=== PATIENT | female | born 1950 | race Caucasian/White ===

== ENCOUNTER → 2016-05-09 | Outpatient (CLI) | payer OTHER, BC ==
[2016-05-09 10:08] LABS: CHOLESTEROL/HDL RATIO 2.8; THYROID STIMULATING HORMONE 2.15 uIu/ml (0.300-4.500)
[2016-05-09 12:57] LABS: LYME DISEASE AB IGG NEG (NEG); LYME DISEASE AB IGM NEG (NEG)
== END | disposition home or self-care (01) ==
LOC: C.LAB1850 07:20
PROVIDERS: ATTEND Internal Medicine
DX: M81.0 Age-related osteoporosis without current pathological fracture (principal); F41.9 Anxiety disorder, unspecified; Z13.1 Encounter for screening for diabetes mellitus; M60.9 Myositis, unspecified; M79.1 Myalgia

== ENCOUNTER → 2016-09-06 | Outpatient (CLI) | payer OTHER, BC ==
[2016-09-06 17:42] LABS: LYME DISEASE AB IGM NEG (NEG)
[2016-09-06 17:43] LABS: LYME DISEASE AB IGG NEG (NEG)
== END | disposition home or self-care (01) ==
LOC: C.LAB1850 15:41
PROVIDERS: ATTEND Physician Assistant
DX: T14.8 Other injury of unspecified body region (principal); W57.XXXA Bitten or stung by nonvenomous insect and other nonvenomous arthropods, initial encounter

== ENCOUNTER → 2016-10-04 | Outpatient (CLI) | payer OTHER, BC ==
[2016-10-04 17:26] LABS: BASO % 0.7 %; BASO ABS # 0.05 K/uL (0-0.2); COMPLETE YES; EOS % 3.3 %; IG% 0.1 %; LYMPH % 22.3 %; LYMPH ABS # 1.64 K/uL (1.2-3.4); MEAN CELL VOLUME 95.2 fL (80-100); MEAN CORPUSCULAR HEMOGLOBIN 31.9 pg (25-34); MEAN CORPUSCULAR HGB CONC 33.5 g/dl (32-36); MEAN PLATELET VOLUME 8.8 fL (7.4-10.4); MONO % 9.7 %; NEUT % 63.9 %; PLATELET COUNT 348 K/uL (130-400); WHITE BLOOD COUNT 7.35 K/uL (4.8-10.8)
[2016-10-04 18:14] LABS: LYME DISEASE AB IGM NEG (NEG)
[2016-10-04 18:17] LABS: LYME DISEASE AB IGG NEG (NEG)
== END | disposition home or self-care (01) ==
LOC: C.LAB1850 16:10
PROVIDERS: ATTEND Internal Medicine
DX: R53.83 Other fatigue (principal)

== ENCOUNTER → 2016-10-29 | Outpatient (CLI) | payer OTHER, BC | END | disposition home or self-care (01) | LOC: C.MAMM 09:46 | PROVIDERS: ATTEND Internal Medicine | DX: M81.0 Age-related osteoporosis without current pathological fracture (principal); M85.851 Other specified disorders of bone density and structure, right thigh; M85.852 Other specified disorders of bone density and structure, left thigh; M85.88 Other specified disorders of bone density and structure, other site ==

== ENCOUNTER → 2017-09-08 | Outpatient (CLI) | payer OTHER, MEDICARE | END | disposition home or self-care (01) | LOC: C.LAB1850 09:22 | PROVIDERS: ATTEND Internal Medicine | DX: T14.8XXA Other injury of unspecified body region, initial encounter (principal); W57.XXXA Bitten or stung by nonvenomous insect and other nonvenomous arthropods, initial encounter ==

== ENCOUNTER → 2017-09-08 | Outpatient (CLI) | payer OTHER, MEDICARE ==
--- NOTE | 2017-09-08 14:33 | MAMMOGRAPHY REPORT ---
BILATERAL DIGITAL SCREENING MAMMOGRAM TOMOSYNTHESIS WITH CAD: 09/08/2017 CLINICAL HISTORY: Routine screening. TECHNIQUE: Breast tomosynthesis in addition to standard 2D mammography was performed. Current study was also evaluated with a Computer Aided Detection (CAD) system. COMPARISON: Comparison is made to exams dated: 09/05/2016 mammogram, 09/23/2014 mammogram, 09/18/2012 ma mmogram, 05/29/2010 mammogram - [facility], 07/28/2008, and 02/19/2006 mammogram - [facility]. BREAST COMPOSITION: There are scattered areas of fibroglandular density in both breasts. FINDINGS: A 6 cm focal asymmetry in the 3:00 middle one third of the left breast is unchanged dating back to at least 05/29/2010, therefore likely benign. No new suspicious mass, architectural distortio n or cluster of microcalcifications is seen. IMPRESSION: ACR BI-RADS CATEGORY 1: NEGATIVE There is no mammographic evidence of malignancy. A 1 year screening mammogram is recommended. The pa tient will receive written notification of the results. Approximately 10% of breast cancers are not detected with mammography. A negative mammographic report should not delay biopsy if a clinically suggestive mass is present. Abril Betancur M.D. ay/:09/08/2017 09:20:31 Ecdis N Navigation Operator: Caitlyn RIVAS)(Stephan), [facility] letter sent: Normal 1/2 BI-RADS Code: ACR BI-RADS Category 1: Negative
== END | disposition home or self-care (01) ==
LOC: C.MAMM 08:34
PROVIDERS: ATTEND Internal Medicine
DX: Z12.31 Encounter for screening mammogram for malignant neoplasm of breast (principal)

== ENCOUNTER 2017-09-09 02:35 | Emergency (ER) | payer OTHER, MEDICARE ==
[~2017-09-09] VITALS: Ht 167.6 cm; Wt 65.4 kg
[2017-09-09 02:43] VITALS: O2SAT 96
[2017-09-09 02:45] VITALS: TEMP 36.7; Ht 167.6 cm; Wt 65.4 kg
[2017-09-09 03:05] LABS: HEMATOCRIT 39.4 % (37-47); HEMOGLOBIN 13.5 g/dL (12.0-16.0); MEAN CELL VOLUME 93.6 fL (80-100); MEAN CORPUSCULAR HEMOGLOBIN 32.1 pg (25-34); MEAN CORPUSCULAR HGB CONC 34.3 g/dl (32-36); MEAN PLATELET VOLUME 8.6 fL (7.4-10.4); PLATELET COUNT 343 K/uL (130-400); RED CELL DISTRIBUTION WIDTH CV 12.6 % (11.5-14.5); RED CELL DISTRIBUTION WIDTH SD 42.6 fL (36.4-46.3); WHITE BLOOD COUNT 9.47 K/uL (4.8-10.8)
--- NOTE | 2017-09-09 03:18 | EMERGENCY ROOM VISIT NOTE ---
History Report prepared by Leatha: Delmi Marc Under the Supervision of: Dr. Vidhi Artis D.O. First contact with patient: 02:41 Chief Complaint: CARDIAC ASSESSMENT Stated Complaint: HEART RACING History of Present Illness The patient is a 66 year old female who presents to the Emergency Room for a cardiac assessment. The patient states that she noticed it was beating hard for the past few days. She reports that this evening she could hear her heart beating in her ears. She states that it sounded like it was going really fast. She reports that she was nervous because it seemed to be getting worse so decided to come to the ED. She states that she has an appointment this morning with her PCP for it, but wanted to be sure she was okay. She notes that she felt like the cooler air helped slow it down. The patient complains of chills. The patient denies this ever happening before, being under more stress than normal, nausea, vomiting, diarrhea, chest pain, shortness of breath, leg cramping, leg swelling, and weight loss. Source of History: patient Onset: a few days ago Position: other (global) Quality: other (cardiac, pounding, racing) Timing: other (episode) Modifying Factors (Relieving): other (cool air) Associated Symptoms: + chills, No chest pain, No SOB, No nausea, No vomiting , No diarrhea Note: The patient denies leg cramping, leg swelling, and weight loss. Review of Systems See HPI for pertinent positives & negatives. A total of 10 systems reviewed and were otherwise negative. Past Medical & Surgical Medical Problems: (1) Arthritis (2) Osteopenia Family History Patient reports no known family medical history. Social History Smoking Status: Current Every Day Smoker Alcohol Use: occasionally Marital Status: single Housing Status: lives alone Occupation Status: retired Current/Historical Medications No Active Prescriptions or Reported Meds Allergies Uncoded Allergies: PENICILLIN (Allergy, Unknown, RASH, 05/12/15) Physical Exam Vital Signs Date Time Temp Pulse Resp B/P (MAP) Pulse Ox O2 Delivery O2 Flow Rate FiO2 09/09/17 04:05 82 18 152/89 96 Room Air 09/09/17 03:35 87 17 95 09/09/17 03:30 154/86 09/09/17 03:20 86 20 93 09/09/17 03:05 87 18 09/09/17 03:00 98 Room Air 09/09/17 03:00 132/93 09/09/17 02:55 160/97 09/09/17 02:50 97 16 96 09/09/17 02:50 97 14 153/96 96 Room Air 09/09/17 02:47 102 09/09/17 02:45 36.7 102 23 176/100 97 Room Air 09/09/17 02:43 96 Room Air Physical Exam HEENT: Head - normocephalic and atraumatic Pupils are equal, round, and reactive to light. Extraocular eye muscles are intact, and sclera are anicteric. Nose - moist nasal mucosa without discharge. Mouth - moist buccal mucosa. Oropharynx is nonerythematous and there is no tonsillar exudate or edema noted. Neck: Supple; no JVD, nuchal rigidity, cervical lymphadenopathy, or auscultated bruits. Heart: Tachycardic rate and regular rhythm. There is a normal S1 and S2 with no murmurs, clicks, or gallops appreciated. Lungs: Clear to auscultation bilaterally with no wheezes, rales, or rhonchi. Abdomen: Soft, completely nontender, nondistended, with good bowel sounds. There are no palpable pulsatile masses or hepatosplenomegaly. There is no guarding, rigidity, or rebound noted. Extremities: No evidence of cyanosis, clubbing, or edema. There are easily palpable peripheral pulses. Skin: warm and dry with good turgor and no rashes. Medical Decision & Procedures ER Provider Diagnostic Interpretation: Radiology results as stated below per my review and the radiologist's interpretation: CHEST X-RAY: The results were interpreted by me. No cardiomegaly. No pulmonary infiltrate or pleural effusion. Laboratory Results 09/09/17 02:56 09/09/17 02:56 Test 09/09/17 02:47 09/09/17 02:56 Bedside Glucose 103 mg/dl (70-90) Red Blood Count 4.21 M/uL (4.2-5.4) Mean Corpuscular Volume 93.6 fL (80-100) Mean Corpuscular Hemoglobin 32.1 pg (25-34) Mean Corpuscular Hemoglobin Concent 34.3 g/dl (32-36) RDW Standard Deviation 42.6 fL (36.4-46.3) RDW Coefficient of Variation 12.6 % (11.5-14.5) Mean Platelet Volume 8.6 fL (7.4-10.4) Anion Gap 6.0 mmol/L (3-11) Est Creatinine Clear Calc Drug Dose 84.0 ml/min Estimated GFR () 108.5 Estimated GFR (Non- 93.7 BUN/Creatinine Ratio 20.2 (10-20) Calcium Level 8.7 mg/dl (8.5-10.1) Troponin I < 0.015 ng/ml (0-0.045) Thyroid Stimulating Hormone (TSH) 2.630 uIu/ml (0.300-4.500) Laboratory results per my review. ECG Per My Interpretation Indication: palpitations Rate (beats per minute): 98 Rhythm: normal sinus Findings: no acute ischemic change, no ectopy ED Course 0242: Past medical records reviewed. The patient was evaluated in room B10. A complete history and physical exam was performed. A 12-lead EKG was obtained as described above. The patient was observed on the cardiac care unit nurse and pulse oximeter. Labs are drawn as above. The patient had a portable chest x-ray as described above. 0349: Upon reevaluation, the patient was doing much better. Her heart rate was 78 and her blood pressure was 154/86. She did not feel such harsh pounding in her ears. I discussed findings and results with her. She verbalized agreement of the treatment plan. The patient was discharged home. Medical Decision The patient is a 66 year old female who presents to the Emergency Room for a cardiac assessment. Differential diagnoses include cardiac dysrhythmia, anxiety, hypertension. LABS: Negative Troponin TSH 2.6 Glucose 104 Normal Renal Function Stable H&H No Leukocytosis This is a 66-year-old female patient who is felt her heart pounding over the past couple of hours. She noted that the rate seemed to speed up. She has no history of cardiac issues or hypertension. Upon arrival in the emergency department, the patient was tachycardic but had no acute EKG changes. With some time and relaxation, the patient's heart rate and blood pressure came down nicely on their own. In fact, the patient was able to sleep. The patient has an appointment scheduled for 8:40 AM this morning with her PCP. I asked her to contact the office and reschedule for later in the afternoon so that she could have her blood pressure rechecked. She will need to keep a log of her blood pressure over the next 5-7 days. She was told return to the emergency department if she had any worsening symptoms such as chest pain or shortness of breath. Medication Reconcilliation Current Medication List: was personally reviewed by me Blood Pressure Screening Patient's blood pressure: Elevated blood pressure Blood pressure disposition: Referred to PCP Impression Primary Impression: Tachycardia Additional Impression: Hypertension Scribe Attestation The scribe's documentation has been prepared under my direction and personally reviewed by me in its entirety. I confirm that the note above accurately reflects all work, treatment, procedures, and medical decision making performed by me. Departure Information Dispostion Home / Self-Care Prescriptions No Active Prescriptions or Reported Meds Referrals RV. Espinosa MD (PCP) Forms IMPORTANT VISIT INFORMATION Patient Instructions My [facility] Additional Instructions Limit salt and caffeine intake. Keep a log of your BP over next 5-7 days Follow up with PCP if heart pounding continues Problem Qualifiers Additional Impression: Hypertension Hypertension type: unspecified Qualified Codes: I10 - Essential (primary) hypertension
[2017-09-09 03:23] LABS: BLOOD UREA NITROGEN 12 mg/dl (7-18); CALCIUM 8.7 mg/dl (8.5-10.1); CARBON DIOXIDE 25 mmol/L (21-32); GLUCOSE 104 mg/dl (70-99); SODIUM 140 mmol/L (136-145)
[2017-09-09 04:05] VITALS: BP 152/89; PULSE 82; O2SAT 96
--- NOTE | 2017-09-09 09:32 | DIAGNOSTIC IMAGING REPORT ---
CHEST ONE VIEW PORTABLE HISTORY: tachycardia COMPARISON: Chest 01/24/2014. FINDINGS: The lungs are clear. Cardiac silhouette is normal in size. No pleural effusions. No pneumothorax. IMPRESSION: No acute process. Electronically signed by: Petar Knight M.D. 09/09/2017 9:31 AM Dictated Date/Time: 09/09/2017 9:29 AM
== END 2017-09-09 04:09 | disposition home or self-care (01) ==
LOC: C.EDB 02:37
DX: R00.0 Tachycardia, unspecified (principal); I10 Essential (primary) hypertension; F17.210 Nicotine dependence, cigarettes, uncomplicated; Z88.0 Allergy status to penicillin

== ENCOUNTER → 2017-11-27 | Outpatient (CLI) | payer OTHER, MEDICARE ==
[2017-11-27 10:12] LABS: BLOOD UREA NITROGEN 12 mg/dl (7-18); CALCIUM 8.9 mg/dl (8.5-10.1); CARBON DIOXIDE 25 mmol/L (21-32); CHOLESTEROL 163 mg/dl (0-200); CREATININE 0.59 mg/dl (0.60-1.20); GLUCOSE 76 mg/dl (70-99); LDL CHOLESTEROL CALCULATED 94 mg/dl; POTASSIUM 4.1 mmol/L (3.5-5.1); SODIUM 137 mmol/L (136-145)
== END | disposition home or self-care (01) ==
LOC: C.LAB1850 07:50
PROVIDERS: ATTEND Internal Medicine
DX: Z13.220 Encounter for screening for lipoid disorders (principal); R03.0 Elevated blood-pressure reading, without diagnosis of hypertension

== ENCOUNTER 2020-09-26 10:02 | Inpatient (IN) ==
--- NOTE | 2020-09-26 10:36 | Communication Note ---
Date of Service: September 26, 2020 This patient was seen in concert with Dr. Shannon and we discussed and agreed upon the history, physical, assessment, and plan. See attending's note for det ails. Resident Activity Tracking Resident Involvement: Resident Care Provided Care Provided: [facility]
--- NOTE | 2020-09-26 11:43 | XRay Report ---
XR hip RT 2V w pelvis CLINICAL HISTORY: Fall. Right hip pain. COMPARISON STUDY: None. FINDINGS: Slightly impacted right femoral neck fracture. No dislocation. The visualized pelvic bones and left hip are intact. IMPRESSION: Slightly impacted right femoral neck fracture. ACT 112: Negative or not required by law. Electronically signed by: Petar Knight M.D. 09/26/2020 11:42 AM
--- NOTE | 2020-09-26 12:06 | Emergency Department Note ---
History of Present Illness General Chief complaint: Fall Time Seen by Provider: 09/26/20 10:17 Source: patient Mode of arrival: EMS Limitations: no limitations History of Present Illness Provider complaint: Right hip pain Maximum Pain Intensity: 1 This is a 69-year-old female who presents to the ED with a chief complaint of a fall. The patient states that around 8:45 AM her dog tugged on her causing her to fall down onto her right side. She has had right hip pain since that time. 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 She tried getting her house and her pain increased and she called EMS and was brought here for evaluation. She reports increased pain with movement of the right hip. Did not strike her head. No other complaints of injury. Home Medications Medication Instructions Recorded Confirmed Type amlodipine 5 mg PO QAM 09/26/20 09/26/20 History calcium phosphate-vitamin D3 2 tab PO QAM 09/26/20 09/26/20 History [Caltrate Gummy Bites] multivit with min-folic acid 2 tab PO QAM 09/26/20 09/26/20 History [Multivitamin Gummies] Allergies Allergy/AdvReac Type Severity Reaction Status Date / Time Penicillins Allergy Verified 09/26/20 11:57 Past Med/Surg History Medical History Anxiety Bilateral sensorineural hearing loss Bilateral tinnitus Bronchitis Conductive hearing loss of right ear with unrestricted hearing of left ear Fear of flying History of tachycardia Nicotine dependence Osteoporosis Pulsatile tinnitus, left ear Skin cancer Vitamin D deficiency Surgical History H/O exploratory laparotomy H/O shoulder surgery Family History Father Alzheimer disease Mother Dementia Osteoporosis Brother Suicide Sister Osteoporosis Ankylosing spondylitis Denies family history of Colon cancer Ovarian cancer Prostate cancer Myocardial infarction Breast cancer Social History Smoking Status: Current every day smoker Hx Alcohol Use: No (2 beers a night ) Hx Substance Use: No Preferred Language: Sammarinese Communication Ability: Effective Visual Impairment: No Limitations Hearing Ability: Normal marital status: Current Living Situation: Spouse current occupational status: retired current occupation: homemaker Feels Safe at Home: Yes Dental Care, Regularly: Yes Physical Activity Frequency: Other Physical Activity Frequency Comment: Frequesnt exercise Seatbelt Use: always Sunscreen Use: No Review of Systems A total of 10 systems reviewed and were otherwise negative Physical Exam Vital Signs Vital Signs - 24 hr 09/26/20 10:13 09/26/20 12:03 Temperature 36.7 C Temperature Source Temporal Artery Scan Pulse Rate 97 H 102 H Pulse Rate from SpO2 Sensor 97 H Respiratory Rate 18 18 Blood Pressure 163/80 H 160/83 H Blood Pressure Mean 107 108 Pulse Oximetry 98 96 Oxygen Delivery Method Room Air Sepsis Recent Fever Within 48 Hours No Sepsis New/Unexplained Change in Mental Status N/A Sepsis Action Taken by Nursing No Action Required CONSTITUTIONAL/VITAL SIGNS: Reviewed / noted above. GENERAL: Non-toxic in appearance. INTEGUMENTARY: Warm, dry, and [place]. HEAD: Normocephalic. EYES: without scleral icterus or trauma. ENT/OROPHARYNX: clear and moist. LYMPHADENOPATHY/NECK: Is supple without lymphadenopathy or meningismus. RESPIRATORY: Lungs clear and equal. CARDIOVASCULAR: Regular rate and rhythm. GI/ABDOMEN: Soft and nontender. No organomegaly or pulsatile mass. No rebound or guarding. Normal bowel sounds. EXTREMITIES: Warm and well perfused. Right hip: No significant shortening or rotation. There is pain with movement. BACK: No CVA tenderness. NEUROLOGICAL: Intact without focal deficits. PSYCHIATRIC: normal affect. MUSCULOSKELETAL: Normally developed with good muscle tone. TRIAGE NURSING DOCUMENTATION REVIEWED. Medical Decision Making Differential Diagnosis Differential includes close head injury, intracranial bleed, facial trauma, cervical spine trauma, chest and thoracic trauma, abdominal and intra-abdominal trauma, spine neurologic trauma, extremity trauma. Medical Records Attestation: I reviewed the patient's medical records. Home Medications Current Medication List: was personally reviewed by me Laboratory Data Attestation: I reviewed the patient's lab results. Result diagrams: 09/26/20 12:08 09/26/20 12:08 Lab Results 09/26/20 09/26/20 09/26/20 Range/Units 12:08 12:08 12:08 WBC 18.23 H (4.8-10.8) K/uL RBC 4.16 L (4.2-5.4) M/uL Hgb 13.4 (12.0-16.0) g/dL Hct 39.0 (37-47) % MCV 93.8 (80-100) fL MCH 32.2 (25-34) pg MCHC 34.4 (32-36) g/dL RDW Std Deviation 42.9 (36.4-46.3) fL RDW Coeff of Maria De Jesus 12.5 (11.5-14.5) % Plt Count 351 (130-400) K/uL MPV 8.7 (7.4-10.4) fL Immature Gran % (Auto) 0.3 % Neut % (Auto) 89.7 % Lymph % (Auto) 5.4 % [place] % (Auto) 4.2 % Eos % (Auto) 0.2 % Baso % (Auto) 0.2 % Neut # (Auto) 16.35 H (1.4-6.5) K/uL Lymph # (Auto) 0.99 L (1.2-3.4) K/uL [place] # (Auto) 0.76 H (0.11-0.59) K/uL Eos # (Auto) 0.04 (0-0.5) K/uL Baso # (Auto) 0.03 (0-0.2) K/uL Immature Gran # (Auto) 0.06 H (0.00-0.02) K/uL PT 10.1 (9.0-12.0) Seconds INR 1.0 (0.9-1.1) APTT 25.5 (21.0-31.0) Seconds PTT Ratio 1.0 Sodium (136-145) mmol/L Potassium (3.5-5.1) mmol/L Chloride (98-107) mmol/L Carbon Dioxide (21-32) mmol/L Anion Gap (3-11) BUN (7-18) mg/dl Creatinine (0.6-1.2) mg/dl Est Cr Clr Drug Dosing ml/min Est GFR ( Amer) ml/min Est GFR (Non-Af Amer) ml/min BUN/Creatinine Ratio (10-20) Glucose (70-99) mg/dl Calcium (8.5-10.1) mg/dl Total Bilirubin (0.2-1) mg/dl AST (15-37) U/L ALT (12-78) U/L Alkaline Phosphatase (45-117) U/L Total Protein (6.4-8.2) gm/dl Albumin (3.4-5.0) gm/dl Globulin (2.5-4.0) gm/dl Albumin/Globulin Ratio (0.9-2) Urine Color Urine Appearance (Clear) Urine pH (4.5-7.5) Ur Specific Boomer (1.000-1.030) Urine Protein (Negative) Urine Glucose (UA) (Negative) Urine Ketones (Negative) Urine Blood (Negative) Urine Nitrite (Negative) Urine Bilirubin (Negative) Urine Urobilinogen (Negative) Ur Leukocyte Esterase (Negative) Urine WBC (Auto) (0-5) /hpf Urine RBC (Auto) (0-4) /hpf U Hyaline Cast (Auto) (0-5) /lpf U Epithel Cells (Auto) (0-5) /lpf Urine Bacteria (Auto) (Negative) COVID-19 Eval Order SARS-CoV-2 (PCR) (Negative) Blood Type O Positive Antibody Screen NEGATIVE 09/26/20 09/26/20 09/26/20 Range/Units 12:08 12:17 12:17 WBC (4.8-10.8) K/uL RBC (4.2-5.4) M/uL Hgb (12.0-16.0) g/dL Hct (37-47) % MCV (80-100) fL MCH (25-34) pg MCHC (32-36) g/dL RDW Std Deviation (36.4-46.3) fL RDW Coeff of Maria De Jesus (11.5-14.5) % Plt Count (130-400) K/uL MPV (7.4-10.4) fL Immature Gran % (Auto) % Neut % (Auto) % Lymph % (Auto) % [place] % (Auto) % Eos % (Auto) % Baso % (Auto) % Neut # (Auto) (1.4-6.5) K/uL Lymph # (Auto) (1.2-3.4) K/uL [place] # (Auto) (0.11-0.59) K/uL Eos # (Auto) (0-0.5) K/uL Baso # (Auto) (0-0.2) K/uL Immature Gran # (Auto) (0.00-0.02) K/uL PT (9.0-12.0) Seconds INR (0.9-1.1) APTT (21.0-31.0) Seconds PTT Ratio Sodium 139 (136-145) mmol/L Potassium 3.6 (3.5-5.1) mmol/L Chloride 108 H (98-107) mmol/L Carbon Dioxide 22 (21-32) mmol/L Anion Gap 9.0 (3-11) BUN 14 (7-18) mg/dl Creatinine 0.48 L (0.6-1.2) mg/dl Est Cr Clr Drug Dosing 100.6 ml/min Est GFR ( Amer) 114.4 ml/min Est GFR (Non-Af Amer) 98.7 ml/min BUN/Creatinine Ratio 29.6 H (10-20) Glucose 101 H (70-99) mg/dl Calcium 9.1 (8.5-10.1) mg/dl Total Bilirubin 0.3 (0.2-1) mg/dl AST 20 (15-37) U/L ALT 27 (12-78) U/L Alkaline Phosphatase 84 (45-117) U/L Total Protein 7.5 (6.4-8.2) gm/dl Albumin 4.2 (3.4-5.0) gm/dl Globulin 3.3 (2.5-4.0) gm/dl Albumin/Globulin Ratio 1.3 (0.9-2) Urine Color Urine Appearance (Clear) Urine pH (4.5-7.5) Ur Specific Boomer (1.000-1.030) Urine Protein (Negative) Urine Glucose (UA) (Negative) Urine Ketones (Negative) Urine Blood (Negative) Urine Nitrite (Negative) Urine Bilirubin (Negative) Urine Urobilinogen (Negative) Ur Leukocyte Esterase (Negative) Urine WBC (Auto) (0-5) /hpf Urine RBC (Auto) (0-4) /hpf U Hyaline Cast (Auto) (0-5) /lpf U Epithel Cells (Auto) (0-5) /lpf Urine Bacteria (Auto) (Negative) COVID-19 Eval Order Covid19 at [facility] SARS-CoV-2 (PCR) NEGATIVE (Negative) Blood Type Antibody Screen 09/26/20 Range/Units 12:35 WBC (4.8-10.8) K/uL RBC (4.2-5.4) M/uL Hgb (12.0-16.0) g/dL Hct (37-47) % MCV (80-100) fL MCH (25-34) pg MCHC (32-36) g/dL RDW Std Deviation (36.4-46.3) fL RDW Coeff of Maria De Jesus (11.5-14.5) % Plt Count (130-400) K/uL MPV (7.4-10.4) fL Immature Gran % (Auto) % Neut % (Auto) % Lymph % (Auto) % [place] % (Auto) % Eos % (Auto) % Baso % (Auto) % Neut # (Auto) (1.4-6.5) K/uL Lymph # (Auto) (1.2-3.4) K/uL [place] # (Auto) (0.11-0.59) K/uL Eos # (Auto) (0-0.5) K/uL Baso # (Auto) (0-0.2) K/uL Immature Gran # (Auto) (0.00-0.02) K/uL PT (9.0-12.0) Seconds INR (0.9-1.1) APTT (21.0-31.0) Seconds PTT Ratio Sodium (136-145) mmol/L Potassium (3.5-5.1) mmol/L Chloride (98-107) mmol/L Carbon Dioxide (21-32) mmol/L Anion Gap (3-11) BUN (7-18) mg/dl Creatinine (0.6-1.2) mg/dl Est Cr Clr Drug Dosing ml/min Est GFR ( Amer) ml/min Est GFR (Non-Af Amer) ml/min BUN/Creatinine Ratio (10-20) Glucose (70-99) mg/dl Calcium (8.5-10.1) mg/dl Total Bilirubin (0.2-1) mg/dl AST (15-37) U/L ALT (12-78) U/L Alkaline Phosphatase (45-117) U/L Total Protein (6.4-8.2) gm/dl Albumin (3.4-5.0) gm/dl Globulin (2.5-4.0) gm/dl Albumin/Globulin Ratio (0.9-2) Urine Color Yellow Urine Appearance Clear (Clear) Urine pH 7.5 (4.5-7.5) Ur Specific Boomer 1.011 (1.000-1.030) Urine Protein Negative (Negative) Urine Glucose (UA) Negative (Negative) Urine Ketones Trace H (Negative) Urine Blood Negative (Negative) Urine Nitrite Negative (Negative) Urine Bilirubin Negative (Negative) Urine Urobilinogen Negative (Negative) Ur Leukocyte Esterase Trace H (Negative) Urine WBC (Auto) 1-5 (0-5) /hpf Urine RBC (Auto) 0-4 (0-4) /hpf U Hyaline Cast (Auto) 0 (0-5) /lpf U Epithel Cells (Auto) 5-10 H (0-5) /lpf Urine Bacteria (Auto) Negative (Negative) COVID-19 Eval Order SARS-CoV-2 (PCR) (Negative) Blood Type Antibody Screen Imaging Data Attestation: I personally reviewed and interpreted this imaging study as follows: Radiologist's Impression: Hip/Pelvis X-Ray 09/26/20 10:43 XR hip RT 2V w pelvis CLINICAL HISTORY: Fall. Right hip pain. COMPARISON STUDY: None. FINDINGS: Slightly impacted right femoral neck fracture. No dislocation. The visualized pelvic bones and left hip are intact. IMPRESSION: Slightly impacted right femoral neck fracture. ACT 112: Negative or not required by law. Electronically signed by: Petar Knight M.D. 09/26/2020 11:42 AM Chest X-Ray 09/26/20 11:53 XR chest 1V portable CLINICAL HISTORY: Hip fracture. Fall. COMPARISON STUDY: Chest radiograph March 08, 2019. FINDINGS: Lung volumes are normal. There is no pneumothorax or pleural effusion. Densities project over the left lower lung are likely due to overlying soft tissues. Cardiac size is normal. There is no evidence for pneumonia. There is pulmonary vascular congestion without overt pulmonary edema. IMPRESSION: 1. No pneumothorax. 2. Pulmonary vascular congestion without overt edema. 3. Left lower lung densities which are probably artifactual. ACT 112: Negative or not required by law. Electronically signed by: Avila Cantu M.D. 09/26/2020 12:28 PM [facility] Narrative Patient presents with right hip pain after a fall as detailed above. X-ray of the right hip reveals a slightly impacted right femoral neck fracture. White blood cell count is 18 likely related to the patient's trauma. No clinical suspicions for infection. Chemistry panel was unremarkable.I spoke with the hospitalist about the patient. The patient will be admitted for further patient evaluation and care. Impression & Plan Fracture of hip, right, closed Discharge Plan Visit Data Chief Complaint: Fall ED Provider: Juan David Shannon ED Midlevel Provider: Joey Grady Discharge Problem: Fracture of hip, right, closed Patient Disposition: Being Evaluated by Hospitalist Forms Stand Alone Forms: My [facility], Virtual Emergency Department, Important Visit Information Prescriptions Prescriptions: No Action Multivitamin Gummies 200 mcg Tablet,Chewable 2 tab PO QAM RF: 0 calcium phosphate-vitamin D3 [Caltrate Gummy Bites] 250 mg-10 mcg (400 unit) Tablet,Chewable 2 tab PO QAM RF: 0 amlodipine 5 mg tablet 5 mg PO QAM RF: 0 Referrals Referrals: Pradeep Whitten MD [Primary Care Provider] -
[2020-09-26 12:16] LABS: Basophils # (auto) 0.03 K/uL (0-0.2); Basophils % (auto) 0.2 %; Eosinophils # (auto) 0.04 K/uL (0-0.5); Eosinophils % (auto) 0.2 %; Hemoglobin 13.4 g/dL (12.0-16.0); Immature Granulocytes # (auto) 0.06 K/uL (0.00-0.02); Immature Granulocytes % (auto) 0.3 %; Lymphocytes # (auto) 0.99 K/uL (1.2-3.4); Lymphocytes % (auto) 5.4 %; Mean Corpuscular Hemoglobin 32.2 pg (25-34); Mean Corpuscular Hgb Conc 34.4 g/dL (32-36); Mean Corpuscular Volume 93.8 fL (80-100); Mean Platelet Volume 8.7 fL (7.4-10.4); Monocytes # (auto) 0.76 K/uL (0.11-0.59); Monocytes % (auto) 4.2 %; Neutrophils # (auto) 16.35 K/uL (1.4-6.5); Neutrophils % (auto) 89.7 %; Platelet Count 351 K/uL (130-400); RDW Coefficient of Variation 12.5 % (11.5-14.5); RDW Standard Deviation 42.9 fL (36.4-46.3); Red Blood Count 4.16 M/uL (4.2-5.4); White Blood Count 18.23 K/uL (4.8-10.8)
[2020-09-26 12:25] LABS: Partial Thromboplastin Time 25.5 Seconds (21.0-31.0); Prothrombin Time 10.1 Seconds (9.0-12.0)
--- NOTE | 2020-09-26 12:29 | XRay Report ---
XR chest 1V portable CLINICAL HISTORY: Hip fracture. Fall. COMPARISON STUDY: Chest radiograph March 08, 2019. FINDINGS: Lung volumes are normal. There is no pneumothorax or pleural effusion. Densities project ov er the left lower lung are likely due to overlying soft tissues. Cardiac size is normal. There is no evidence for pneumonia. There is pulmonary vascular congestion without overt pulmonary edema. IMPRESSION: 1. No pneumothorax. 2. Pulmonary vascular congestion without overt edema. 3. Left lower lung densities which are probably artifactual. ACT 112: Negative or not required by law. Electronically signed by: Avila Cantu M.D. 09/26/2020 12:28 PM
--- NOTE | 2020-09-26 12:32 | History & Physical Report ---
Date of Service September 26, 2020 Assessment & Plan (1) Closed right hip fracture: Right femoral neck fracture from a fall Will admit to a nonmonitored bed Low-dose Dilaudid for analgesia We will consult orthopedics for possible surgical correction DVT prophylaxis with heparin, can stop perioperatively No medical objection to proceeding with any required orthopedic procedure (2) Hypertension: Patient currently on amlodipine 5 mg daily Hypertensive, likely secondary to pain. We will continue to monitor on current medications. History of Present Illness Chief Complaint: Fall Primary Care Provider: Pradeep Whitten MD This is a 69-year-old female with past medical history hypertension that presents today status post fall. Patient is pleasant good historian. Patient raises [facility], will bring 1 to a groomer today. The dog became nervous and pulled the leash. Patient fell, landing on her right side. She did not pass out or strike her head. She was able to get up on her own power and drove home. She was started to have right hip pain which prompted her to come to the emergency room for further evaluation. In the ER, plain x-ray showed an impacted right femoral neck fracture. Patient is now being admitted for further treatment of this. Patient's main complaint is right hip pain which is consistent with her injury. There is no back or distal extremity pain. She also denies any systemic symptoms such as chest pain, shortness of breath, dyspnea, abdominal pain, or other issues at this time. Allergies Allergy/AdvReac Type Severity Reaction Status Date / Time Penicillins Allergy Verified 09/26/20 11:57 Home Medications Medication Instructions Recorded Confirmed Type amlodipine 5 mg PO QAM 09/26/20 09/26/20 History calcium phosphate-vitamin D3 2 tab PO QAM 09/26/20 09/26/20 History [Caltrate Gummy Bites] multivit with min-folic acid 2 tab PO QAM 09/26/20 09/26/20 History [Multivitamin Gummies] Past Med/Surg History Medical History Anxiety Bilateral sensorineural hearing loss Bilateral tinnitus Bronchitis Conductive hearing loss of right ear with unrestricted hearing of left ear Fear of flying History of tachycardia Nicotine dependence Osteoporosis Pulsatile tinnitus, left ear Skin cancer Vitamin D deficiency Surgical History H/O exploratory laparotomy H/O shoulder surgery Family History Father Alzheimer disease Mother Dementia Osteoporosis Brother Suicide Sister Osteoporosis Ankylosing spondylitis Denies family history of Colon cancer Ovarian cancer Prostate cancer Myocardial infarction Breast cancer Social History Smoking Status: Current every day smoker Hx Alcohol Use: No (2 beers a night ) Hx Substance Use: No Preferred Language: Japanese Communication Ability: Effective Visual Impairment: No Limitations Hearing Ability: Normal marital status: Current Living Situation: Spouse current occupational status: retired current occupation: homemaker Feels Safe at Home: Yes Dental Care, Regularly: Yes Physical Activity Frequency: Other Physical Activity Frequency Comment: Frequesnt exercise Seatbelt Use: always Sunscreen Use: No Review of Systems Constitutional: no fever, no chills, no body aches, no fatigue, no weakness and no anorexia Ear, Nose, Mouth, Throat: no ear pain, no ear discharge and no ear trauma Respiratory: no cough, no chest congestion, no dyspnea, no dyspnea on exertion, no pain on inspiration, no pain with cough, no stopping breathing during sleep, no sputum production and no problem reported Cardiovascular: no chest pain, no chest pain at rest, no radiating jaw, neck or arm pain, no dyspnea, no dyspnea on exertion, no orthopnea, no palpitations and no lightheadedness Gastrointestinal: no abdominal pain, no nausea, no vomiting, no constipation and no diarrhea/loose stools Genitourinary: no dysuria, no difficulty urinating, no urinary hesitancy and no urinary urgency Musculoskeletal: + joint pain and + problem reported; no back pain and no loss of height Integumentary: no rash and no lesions Neurologic: + falls Psychiatric: as per Subjective / HPI Physical Exam Constitutional: + thin and cooperative; no acute distress ENMT: external ear and nose normal, oropharynx normal Neck: trachea midline, no thyromegaly Respiratory: normal respiratory effort, lungs clear to auscultation Cardiovascular: RRR, no murmur, no edema Vessels: no JVD and no carotid bruit Extremities: no edema Gastrointestinal (Abdomen): normal bowel sounds, soft, nontender, no hepatosplenomegaly Musculoskeletal: no cyanosis or clubbing, extremities motor strength 5/5 Right extremity warm, good DP/PT pulses. Slightly shortened and externally rotated Neurologic: PERRL, EOMI, accommodation nl, no face palsy, no dysarthria Results & Data Results & Data ([facility]) Vital Signs (Past 12 Hours) Vital Signs Temp Pulse Resp BP Pulse Ox 09/26/20 12:03 102 H 18 160/83 H 96 09/26/20 10:13 36.7 C 97 H 18 163/80 H 98 Diagnostic Findings XR hip RT 2V w pelvis CLINICAL HISTORY: Fall. Right hip pain. COMPARISON STUDY: None. FINDINGS: Slightly impacted right femoral neck fracture. No dislocation. The visualized pelvic bones and left hip are intact. IMPRESSION: Slightly impacted right femoral neck fracture. PG Care Time/CCT Total # of Minutes Spent Total Time Spent with Patient: Total time spent is greater than 50% in coordination of care (as documented) at patient's floor/unit and/or counseling patient: Coding Level of Care Code 77554 Initial Inpt Care Lvl 3 Diagnoses Closed right hip fracture S72.001A Hypertension I10
[2020-09-26 12:49] LABS: Appearance Urine Clear (Clear); Bacteria Urine Automated Negative (Negative); Bilirubin Urine Negative (Negative); Blood Urine Negative (Negative); Cast Urine Automated 0 /lpf (0-5); Color Urine Yellow; Glucose Urine UA Negative (Negative); Ketones Urine Trace (Negative); Leukocyte Esterase Urine Trace (Negative); Nitrite Urine Negative (Negative); Protein Urine Negative (Negative); RBC Urine Automated 0-4 /hpf (0-4); Specific Gravity Urine 1.011 (1.000-1.030); Urobilinogen Urine Negative (Negative); pH Urine 7.5 (4.5-7.5)
[2020-09-26 12:50] LABS: Albumin Level 4.2 gm/dl (3.4-5.0); BUN Creatinine Ratio 29.6 (10-20); Calcium 9.1 mg/dl (8.5-10.1); Creatinine Clr Calc Pharmacy 100.6 ml/min; Est GFR (African American) 114.4 ml/min; Est GFR (Non-African American) 98.7 ml/min; Potassium 3.6 mmol/L (3.5-5.1)
[2020-09-26 13:02] LABS: Albumin Globulin Ratio 1.3 (0.9-2); Bilirubin,Total 0.3 mg/dl (0.2-1); Globulin 3.3 gm/dl (2.5-4.0); Total Protein 7.5 gm/dl (6.4-8.2)
[2020-09-26] MEDS ORDERED: ZOLPIDEM TARTRATE 5 MG TAB PO PRN (14:48)
[2020-09-26] MEDS ORDERED: POLYETHYLENE (MIRALAX) 17 GM PACK PO PRN (14:48)
[2020-09-26] MEDS ORDERED: HYDROmorphone INJ 0.5 MG/0.5 ML SYR IV PRN (14:48)
[2020-09-26] MEDS ORDERED: ACETAMINOPHEN 325 MG TAB PO PRN (14:48)
--- NOTE | 2020-09-26 16:25 | Electrocardiogram Report ---
Test Reason : Blood Pressure : / mmHG Vent. Rate : 099 BPM Atrial Rate : 099 BPM P-R Int : 152 ms QRS Dur : 080 ms QT Int : 368 ms P-R-T Axes : 079 029 067 degrees QTc Int : 472 ms Normal sinus rhythm with sinus arrhythmia Normal ECG When compared with ECG of 09-SEP-2017 02:43, No significant change was found Confirmed by Neeraj Lui ([id number]) on 09/26/2020 4:24:54 PM Referred By: REFERRED SELF Confirmed By:Neeraj Lui
[2020-09-26] MEDS: HEPARIN SOD 5,000 UNIT/0.5 ML VIAL SQ SCH ×2 (16:26→21:47)
[2020-09-26] MEDS: SODIUM CHLORIDE 0.9% 1000ML 1,000 ML IV SCH (17:04)
--- NOTE | 2020-09-26 17:29 | Orthopedic Consultation ---
Date of Consultation September 26, 2020 Assessment & Plan (1) Fracture of hip, right, closed: I discussed at length the patient's diagnosis and surgical treatment options which included right hip percutaneous pinning. We will plan for surgery on 09/27/2020, afternoon. N.p.o. after midnight, nonweightbearing right lower extremity, pain control, ice to right hip. Hold anticoagulation. Thank you for the consultation. 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 Patient reports she was able to ambulate with some difficulty and was able to drive home. Patient denies hitting head or loss of consciousness. X-rays obtained at the emergency department demonstrated a valgus impacted right femoral neck fracture. The patient was admitted for further treatment for her right hip fracture. She denies any numbness or tingling to her right lower extremity, denies any associated injuries. Allergies Allergy/AdvReac Type Severity Reaction Status Date / Time Penicillins Allergy Verified 09/26/20 11:57 Home Medications Medication Instructions Recorded Confirmed Type amlodipine 5 mg PO QAM 09/26/20 09/26/20 History calcium phosphate-vitamin D3 2 tab PO QAM 09/26/20 09/26/20 History [Caltrate Gummy Bites] multivit with min-folic acid 2 tab PO QAM 09/26/20 09/26/20 History [Multivitamin Gummies] Patient History Medical History Anxiety Bilateral sensorineural hearing loss Bilateral tinnitus Bronchitis Conductive hearing loss of right ear with unrestricted hearing of left ear Fear of flying History of tachycardia Nicotine dependence Osteoporosis Pulsatile tinnitus, left ear Skin cancer Vitamin D deficiency Surgical History H/O exploratory laparotomy H/O shoulder surgery Family History Father Alzheimer disease Mother Dementia Osteoporosis Brother Suicide Sister Osteoporosis Ankylosing spondylitis Denies family history of Colon cancer Ovarian cancer Prostate cancer Myocardial infarction Breast cancer Social History Smoking Status: Current every day smoker Cigarettes Per Day: 10; Hx Alcohol Use: Yes Alcohol type: beer Hx Substance Use: No Preferred Language: Cook Islander Communication Ability: Effective Visual Impairment: No Limitations Hearing Ability: Normal Funeral Director/Embalmer Required: No Beliefs That Will Affect Care: None marital status: Current Living Situation: Alone current occupational status: retired current occupation: homemaker Other Information That Helps Us Care for You: No Feels Safe at Home: Yes Safety Concerns: Feels Safe At This Time Dental Care, Regularly: Yes Physical Activity Frequency: Other Physical Activity Frequency Comment: Frequesnt exercise Seatbelt Use: always Sunscreen Use: No Assistive Devices: None Review of Systems Review of Systems: All systems reviewed & are unremarkable except as noted in HPI & below Constitutional: as per Subjective / HPI Physical Exam Physical Exam: RLE NVSI +EHL/FHL/TA/GS SILT grossly, +2 DP pulse, compartments soft NT. Constitutional: WD/WN, vitals as above Results & Data ([place]) Vital Signs (Past 12 Hours) Vital Signs Temp Pulse Pulse Resp BP BP Pulse Ox 09/26/20 14:46 36.7 C 102 H 18 150/95 H 99 09/26/20 14:14 101 H 18 150/91 H 97 09/26/20 12:03 102 H 18 160/83 H 96 09/26/20 10:13 36.7 C 97 H 18 163/80 H 98 Diagnostic Findings XR hip RT 2V w pelvis CLINICAL HISTORY: Fall. Right hip pain. COMPARISON STUDY: None. FINDINGS: Slightly impacted right femoral neck fracture. No dislocation. The visualized pelvic bones and left hip are intact. IMPRESSION: Slightly impacted right femoral neck fracture. ACT 112: Negative or not required by law. (1) Fracture of hip, right, closed Encounter type: initial encounter Qualified Code(s): S72.001A - Fracture of unspecified part of neck of right femur, initial encounter for closed fracture
[2020-09-26] MEDS: NICOTINE 14 MG/24 HR PATCH TD SCH (18:42)
[2020-09-26] MEDS: HYDROmorphone INJ 0.5 MG/0.5 ML SYR IV PRN (21:41)
[2020-09-27] MEDS: HYDROmorphone INJ 0.5 MG/0.5 ML SYR IV PRN ×7 (00:54→21:55)
[2020-09-27] MEDS: SODIUM CHLORIDE 0.9% 1000ML 1,000 ML IV SCH ×2 (05:30→21:52)
[2020-09-27 05:42] LABS: Basophils # (auto) 0.03 K/uL (0-0.2); Basophils % (auto) 0.4 %; Eosinophils # (auto) 0.05 K/uL (0-0.5); Eosinophils % (auto) 0.6 %; Hematocrit (blood only) 35.2 % (37-47); Hemoglobin 12.1 g/dL (12.0-16.0); Immature Granulocytes # (auto) 0.01 K/uL (0.00-0.02); Immature Granulocytes % (auto) 0.1 %; Lymphocytes # (auto) 1.17 K/uL (1.2-3.4); Lymphocytes % (auto) 14.2 %; Mean Corpuscular Hemoglobin 32.9 pg (25-34); Mean Corpuscular Hgb Conc 34.4 g/dL (32-36); Mean Corpuscular Volume 95.7 fL (80-100); Mean Platelet Volume 8.9 fL (7.4-10.4); Monocytes # (auto) 0.74 K/uL (0.11-0.59); Neutrophils # (auto) 6.25 K/uL (1.4-6.5); Neutrophils % (auto) 75.7 %; Platelet Count 321 K/uL (130-400); RDW Coefficient of Variation 12.4 % (11.5-14.5); RDW Standard Deviation 43.4 fL (36.4-46.3); Red Blood Count 3.68 M/uL (4.2-5.4); White Blood Count 8.25 K/uL (4.8-10.8)
[2020-09-27] MEDS: HEPARIN SOD 5,000 UNIT/0.5 ML VIAL SQ SCH ×2 (05:48→13:19)
[2020-09-27 06:13] LABS: BUN Creatinine Ratio 25.2 (10-20); Calcium 8.3 mg/dl (8.5-10.1); Creatinine Clr Calc Pharmacy 109.8 ml/min; Est GFR (African American) 117.7 ml/min; Est GFR (Non-African American) 101.6 ml/min; Potassium 3.6 mmol/L (3.5-5.1)
[2020-09-27] MEDS: NICOTINE 14 MG/24 HR PATCH TD SCH (07:48)
[2020-09-27] MEDS: amLODIPine BESYLATE 5 MG TAB PO SCH (08:31)
[2020-09-27] MEDS: CALCIUM 600MG + VIT D 400 IU TAB PO SCH (08:31)
[2020-09-27] MEDS: MULTIVITAMIN TAB PO SCH (08:32)
--- NOTE | 2020-09-27 10:43 | Anesthesiology Consultation ---
Date of Service September 27, 2020 Assessment & Plan (1) Encounter for pre-operative examination: Chart Review Chart Review: Acceptable Risk for Surgery and Patient NOT seen in Pre Admission Testing Consults Requested none History Surgery Operation Date: 09/27/20 07:00 Proposed Procedures p Right Hip Open Reduction Internal Fixation 7.3 Cannulated Screws - Arie Shannon MD Height/Weight Height: 5 ft 6 in Weight: 65 kg Allergies Allergy/AdvReac Type Severity Reaction Status Date / Time Penicillins Allergy Verified 09/26/20 11:57 Medications Home Medications Medication Instructions Recorded Confirmed Last Taken amlodipine 5 mg PO QAM 09/26/20 09/26/20 09/26/20 calcium phosphate-vitamin D3 2 tab PO QAM 09/26/20 09/26/20 09/26/20 [Caltrate Gummy Bites] multivit with min-folic acid 2 tab PO QAM 09/26/20 09/26/20 09/26/20 [Multivitamin Gummies] Active Medications Generic Name Dose Route Start Last Admin Trade Name Freq PRN Reason Stop Dose Admin Amlodipine Besylate 5 mg 09/27/20 09:00 09/27/20 08:31 Amlodipine Besylate 5 Mg Tab PO 10/27/20 08:59 5 mg QAM LES Administration Heparin Sodium (Porcine) 5,000 units 09/26/20 14:48 09/27/20 05:48 Heparin Sod 5,000 Unit/0.5 Ml Vial SQ 10/26/20 14:47 Not Given Q8 LES Hydromorphone HCl 0.25 mg 09/26/20 21:07 09/27/20 00:54 Hydromorphone Inj 0.5 Mg/0.5 Ml Syr IV 10/10/20 21:06 0.25 mg Q3H PRN Administration Pain (1,2,3,4,5) & Pre PT Hydromorphone HCl 0.5 mg 09/26/20 21:07 09/27/20 07:44 Hydromorphone Inj 0.5 Mg/0.5 Ml Syr IV 10/10/20 21:06 0.5 mg Q3H PRN Administration Pain (6,7,8,9,10) Sodium Chloride 1,000 mls @ 75 mls/hr 09/26/20 16:45 09/27/20 05:30 Nss 1000ml IV 10/25/21 16:44 75 mls/hr .[id number] LES Administration Miscellaneous 1 ea 09/27/20 08:59 09/27/20 07:47 Remove Nicoderm Patch N/A 10/27/20 08:58 Not Given [id number] LES Multivitamins 1 tab 09/27/20 09:00 09/27/20 08:32 Multivitamin Tab PO 10/27/20 08:59 1 tab QAM LES Administration Multivitamins/Minerals 1 tab 09/27/20 09:00 09/27/20 08:31 Calcium 600mg + Vit D 400 Iu Tab PO 10/27/20 08:59 1 tab QAM LES Administration Nicotine 14 mg 09/26/20 16:52 09/27/20 07:48 Nicotine 14 Mg/24 Hr Patch TD 10/26/20 16:51 Not Given QAM LES NPO Date Last Intake of Fluids: 09/26/20 Time Last Intake of Fluids: 23:59 Date Last Intake of Solids: 09/26/20 Time Last Intake of Solids: 22:00 Last Intake of Solids Comment: crackers and applesauce Past Medical History Medical History Anxiety Bilateral sensorineural hearing loss Bilateral tinnitus Bronchitis Conductive hearing loss of right ear with unrestricted hearing of left ear Fear of flying History of tachycardia Nicotine dependence Osteoporosis Pulsatile tinnitus, left ear Skin cancer Vitamin D deficiency Past Family History Family History Father Alzheimer disease Mother Dementia Osteoporosis Brother Suicide Sister Osteoporosis Ankylosing spondylitis Denies family history of Colon cancer Ovarian cancer Prostate cancer Myocardial infarction Breast cancer Past Surgical History Surgical History H/O exploratory laparotomy H/O shoulder surgery Social History Smoking Status: Current every day smoker tobacco type: cigarettes Smoking cigarettes per day: 10 Hx Alcohol Use: Yes Alcohol type: beer alcohol intake frequency: 3 or more drinks per day Hx Substance Use: No Physical Exam Vital Signs Last Vital Signs Temp 37.0 C 09/27/20 07:11 Pulse 85 09/27/20 07:11 Resp 18 09/27/20 07:11 BP 137/71 09/27/20 07:11 Pulse Ox 95 09/27/20 07:11 Testing Laboratory Results 09/27/20 05:07 09/27/20 05:07 PT 10.1 Seconds (9.0-12.0) 09/26/20 12:08 INR 1.0 (0.9-1.1) 09/26/20 12:08 APTT 25.5 Seconds (21.0-31.0) 09/26/20 12:08 Urine Color Yellow 09/26/20 12:35 Urine Appearance Clear (Clear) 09/26/20 12:35 Urine pH 7.5 (4.5-7.5) 09/26/20 12:35 Ur Specific [place] 1.011 (1.000-1.030) 09/26/20 12:35 Urine Protein Negative (Negative) 09/26/20 12:35 Urine Glucose (UA) Negative (Negative) 09/26/20 12:35 Urine Ketones Trace (Negative) H 09/26/20 12:35 Urine Nitrite Negative (Negative) 09/26/20 12:35 Ur Leukocyte Esterase Trace (Negative) H 09/26/20 12:35 Urine WBC (Auto) 1-5 /hpf (0-5) 09/26/20 12:35 Urine RBC (Auto) 0-4 /hpf (0-4) 09/26/20 12:35 U Hyaline Cast (Auto) 0 /lpf (0-5) 09/26/20 12:35 U Epithel Cells (Auto) 5-10 /lpf (0-5) H 09/26/20 12:35 Urine Bacteria (Auto) Negative (Negative) 09/26/20 12:35 Blood Type O Positive 09/26/20 12:08 Antibody Screen NEGATIVE 09/26/20 12:08 Electrocardiogram Date: 09/27/20 Normal sinus rhythm with sinus arrhythmia (99) Normal ECG When compared with ECG of 09-SEP-2017 02:43, No significant change was found
--- NOTE | 2020-09-27 10:53 | Hospitalist Progress Note ---
Date of Service September 27, 2020 Assessment & Plan (1) Closed right hip fracture: Ms. Day is a 69y/o female with past medical history hypertension that presents today status post fall Right femoral neck fracture: -going to the OR today -Low-dose Dilaudid for analgesia -based of XR hip, patient with osteoporosis -would benefit from Vit D and Calcium supplementation until able to be started on bisphosphonate -will need rehab for strengthening and gait training following surgical fixation of fracture HTN: -restart oral medications following completion of procedure Code Status: Full code DVT ppx: heparin until procedure Admission and Anticipated Discharge Date Admission Date: September 26, 2020 Supervising Physician Co-Signing Physician Notes I personally examined the patient and verified all baptiste points of history and exam, discussed case, and agree with decision making with Dr Garcia pain controlled. wonders what post op course will look like rich noted nad heent nc at mmm breathing unlabored no accessory muscle use good effort. Skin shows no rashes no pallor or icterus. Neuro shows no focal deficits. Osteoporotic hip fracturerisks of being age/gender/prior deficiency/tobacco abusefor OR today, outpatient bone health work-up and treatment, anticipate initiating bisphosphonate in about a month, will need updated D level, etc. DVT prophylaxisheparin subcu Otherwise as above Subjective Pain fairly well controlled with dilaudid overnight. Awaiting surgery later today. Frustrated with having broken a bone that requires surgery but wants to get back on her feet as soon as possible. Review of Systems Review of Systems: All systems reviewed & are unremarkable except as noted in Subjective Physical Exam Constitutional: WD/WN, vitals as above Eyes: PERRL, conjunctivae normal, anicteric sclerae Respiratory: normal respiratory effort, lungs clear to auscultation Auscultation: no crackles, no rales, no rhonchi and no wheezes Cardiovascular: Rate/Rhythm: regular rate and regular rhythm Heart Sounds: no gallop, no murmur and no cardiac rub Vessels: normal peripheral pulses; no JVD Extremities: no edema Gastrointestinal (Abdomen): Inspection/Auscultation: normal bowel sounds; abdomen not distended Percussion/Palpation: abdomen soft; abdomen nontender and no guarding Neurologic: PERRL, EOMI, accommodation nl, no face palsy, no dysarthria CN's II-XI intact bilaterally and moves all extremities Psychiatric: Orientation: alert and oriented x 3 Results & Data Results & Data ([facility]) Vital Signs (Past 12 Hours) Vital Signs Temp Pulse Resp BP Pulse Ox 09/27/20 07:11 37.0 C 85 18 137/71 95 09/26/20 23:00 37.2 C 90 20 144/83 H 94 Resident Activity Tracking Resident Involvement: Resident Care Provided Care Provided: Adult Hospital Medicine
[2020-09-27] MEDS ORDERED: ATROPINE SULFATE 0.1 MG/ML 10ML SYR IV PRN (18:17)
[2020-09-27] MEDS ORDERED: fentaNYL citrate 100 MCG/2 ML VIAL IV PRN (18:17)
[2020-09-27] MEDS ORDERED: ONDANSETRON INJ 2 MG/ML 2 ML VIAL IV PRN (18:17)
[2020-09-27] MEDS ORDERED: ALBUTEROL 0.083% NEBU SOLN 3 ML VIAL INH PRN (18:17)
[2020-09-27] MEDS ORDERED: HYDROmorphone INJ 2 MG/ML SYR/VIAL IV PRN (18:17)
[2020-09-27] MEDS ORDERED: ePHEDrine sulfate 50 MG/ML AMP IV PRN (18:17)
[2020-09-27] MEDS ORDERED: fentaNYL citrate 100 MCG/2 ML VIAL ONE (18:23)
[2020-09-27] MEDS ORDERED: ONDANSETRON INJ 2 MG/ML 2 ML VIAL ONE (18:23)
[2020-09-27] MEDS ORDERED: LIDOCAINE 2% 2 ML VIAL/AMP(20MG/ML) INFIL ONE (18:23)
[2020-09-27] MEDS ORDERED: PROPOFOL IV EMULSION 10 MG/ML 20 ML VIAL IV ONE (18:23)
[2020-09-27] MEDS ORDERED: DEXAMETHASONE SOD INJ 4 MG/ML VIAL ONE (18:23)
[2020-09-27] MEDS ORDERED: MIDAZOLAM HCL 1 MG/ML 2ML VIAL ONE (18:23)
[2020-09-27] MEDS ORDERED: ceFAZolin 1000MG 1,000 MG/7.5 ML SYR IV ONE (18:34)
--- NOTE | 2020-09-27 18:38 | Billing Data ---
Date of Service September 27, 2020 Coding Level of Care Code 97922 Subseq Hosp Care Lvl 3
--- NOTE | 2020-09-27 18:39 | History & Physical Bridge Note ---
Date of Service September 27, 2020 History & Physical Bridge Note I have examined the patient, reviewed the History & Physical and in the interval since the performance of the History & Physical I have noted the following changes of clinical significance: no changes noted
--- NOTE | 2020-09-27 18:41 | Orthopedic Progress Note ---
Date of Service September 27, 2020 Assessment & Plan (1) Fracture of hip, right, closed: The patient is a 68-year-old female with valgus impacted right femoral neck fracture sustained after a fall from standing height. The patient was medically stabilized on 09/28/2019. I indicated the patient for right hip percutaneous pinning. The patient was informed of the risks and benefits of surgery, which include but not limited to infection, bleeding, blood clots, damage to nerves, vessels, bone and soft tissue, malunion, nonunion, leg length discrepancy, need for additional surgery and . The patient chose to move forward with surgical intervention and informed consent was obtained. Admission and Anticipated Discharge Date Admission Date: September 26, 2020 Subjective Patient seen in preoperative holding, medically optimized for surgery, no acute issues overnight, pain well controlled. Review of Systems Review of Systems: All systems reviewed & are unremarkable except as noted in HPI & below Constitutional: as per Subjective / HPI Physical Exam Physical Exam: RLE NVSI +EHL/FHL/TA/GS SILT grossly, +2 DP pulse, compartments soft NT Constitutional: WD/WN, vitals as above Results & Data ([place]) Vital Signs (Past 12 Hours) Vital Signs Temp Pulse Resp BP Pulse Ox 09/27/20 18:23 158/90 H 09/27/20 17:47 36.7 C 96 H 18 161/114 H 91 09/27/20 15:22 37.0 C 93 H 18 162/90 H 90 09/27/20 07:11 37.0 C 85 18 137/71 95 (1) Fracture of hip, right, closed Encounter type: initial encounter Qualified Code(s): S72.001A - Fracture of unspecified part of neck of right femur, initial encounter for closed fracture
[2020-09-27] MEDS ORDERED: BUPIVACAINE/EPINEPHRINE 0.5% MPF 1:200,000 30 ML VIAL ONE (20:05)
--- NOTE | 2020-09-27 20:27 | Post Operative Brief Note ---
Immediate Post Op Note v1 Date of Surgery September 27, 2020 Pre & Post Diagnosis Operation Date: 09/27/20 07:00 Pre-Op Diagnosis: RIGHT HIP FRACTURE Post-Op Diagnosis: RIGHT HIP FRACTURE I identified the patient and participated in the time-out.: Yes Procedure Operation Date: 09/27/20 07:00 Actual Procedures p Right Hip Percutaneous Pinning(Right) - Wander Damon DO Surgeon Wander Damon DO Cycle Director None Estimated Blood Loss 60 Findings Consistent with Post-Op Diagnosis Fluids See anesthesia report Anesthesia Type General Complications none Disposition Disposition: Recovery Room Overlapping Procedure I was present for: the critical portions of procedure. I was immediately available: during the entire case. Back up surgeon: was not required during procedure.
--- NOTE | 2020-09-27 20:28 | Operative Report ---
Post Operative Report Pre & Post Diagnosis Operation Date: 09/27/20 07:00 Pre-Op Diagnosis: RIGHT HIP FRACTURE Post-Op Diagnosis: RIGHT HIP FRACTURE I identified the patient and participated in the time-out.: Yes Procedure Operation Date: 09/27/20 07:00 Actual Procedures p Right Hip Percutaneous Pinning(Right) - Wander Damon DO Surgeon Wander Damon DO Community Service Worker None Estimated Blood Loss 60 Findings Consistent with Post-Op Diagnosis Fluids See anesthesia Specimens None Anesthesia Type General Complications none Disposition Disposition: Recovery Room Description of Procedure The patient was identified, brought to the operating room, and placed in supine position on the table. After induction of general anesthesia, the patient was positioned on a fracture table. Imaging was obtained utilizing C-arm fluoroscopy of the right hip to assess hip position and version. No reduction was needed. The right hip was then sterilely prepped and draped in the usual fashion for the surgery. A timeout was performed with site deepika confirmation and preoperative antibiotics given. Once again under C-arm fluoroscopy a guide pin was inserted percutaneously and positioned in the inferior neck and femoral head while assessed in both the AP and lateral planes. When satisfactory position was confirmed a small direct lateral incision of the right hip around the guide pin was made. Dissection was carried down to the femur through the IT band and the vastus lateralis was elevated off the bone. Adequate hemostasis was achieved with electrocautery. Next under direct visualization with C-arm fluoroscopy we then used the pin guide to place two additional pins in the anterior superior and posterior superior positions. Position was confirmed both with C-arm fluroscopy in the AP and lateral postion. Each guide pin was measured for appropriate screw length and overdrilled using the cannulated drill bit while utilizing C-arm fluoroscopy to confirm no pin migration had occurred. Three 7.3 16 thread cannulated screws measure 90, 85 and 85 mm were then placed under C-arm fluoroscopy into the femoral head with excellent fixation. The guide pins were removed at this time and final images were obtained utilizing C- arm fluoroscopy. Once this was done and the fixation was solid, the wound was irrigated with copious amounts of sterile saline solution. The wound was injected with half percent Marcaine with epi. We then closed in layers using 1 Vicryl, 2-0 Vicryl, and dottie for the skin. Sterile xeroform, 4x4, and foam tape. The patient was extubated in the OR , tolerated the procedure well and was taken to the PACU in stable condition. I attest to the content of the Intraoperative Record and any orders documented therein. Any exceptions are noted below.
--- NOTE | 2020-09-27 20:36 | Orthopedic Progress Note ---
Date of Service September 27, 2020 Assessment & Plan (1) Fracture of hip, right, closed: Status post right hip percutaneous pinning -Ancef x24 -DVT prophylaxis: SCDs, teds, Lovenox daily -Nonweightbearing right lower extremity -PT/OT -Postoperative x-ray pending -A.m. lab Admission and Anticipated Discharge Date Admission Date: September 26, 2020 Subjective Post Operative Progress Note Patient seen in PACU, comfortable, denies complaints, pain well controlled, no acute issues. Review of Systems Review of Systems: All systems reviewed & are unremarkable except as noted in HPI & below Constitutional: as per Subjective / HPI Physical Exam Physical Exam: RLE NVSI +EHL/FHL/TA/GS SILT grossly, +2 DP pulse, compartments soft NT, dressing cdi. Constitutional: WD/WN, vitals as above Results & Data ([facility]) Vital Signs (Past 12 Hours) Vital Signs Temp Pulse Resp BP Pulse Ox 09/27/20 18:23 158/90 H 09/27/20 17:47 36.7 C 96 H 18 161/114 H 91 09/27/20 15:22 37.0 C 93 H 18 162/90 H 90 (1) Fracture of hip, right, closed Encounter type: initial encounter Qualified Code(s): S72.001A - Fracture of unspecified part of neck of right femur, initial encounter for closed fracture
--- NOTE | 2020-09-27 21:00 | Anesthesiology Progress Note ---
Date of Service September 27, 2020 Anesthesia Post Procedure Vital Signs Vital Signs: Temp Pulse Pulse Resp BP Pulse Ox 09/27/20 20:50 88 20 139/73 96 09/27/20 20:40 89 19 159/95 H 97 09/27/20 20:30 36.6 C 85 16 146/78 H 98 09/27/20 18:23 158/90 H 09/27/20 17:47 36.7 C 96 H 18 161/114 H 91 09/27/20 15:22 37.0 C 93 H 18 162/90 H 90 09/27/20 07:11 37.0 C 85 18 137/71 95 09/26/20 23:00 37.2 C 90 20 144/83 H 94 Pain Intensity Right Thigh: Pain Intensity: 3 Right Hip: Pain Intensity: 10 Transfer of Care Handoff Completed per policy Notes Mental Status: alert / awake / arousable Patient Amnestic to Procedure: Yes Nausea / Vomiting: adequately controlled Pain: adequately controlled Airway Patency, RR, SpO2: stable & adequate BP & HR: stable & adequate Hydration State: stable & adequate Anesthetic Complications: no major complications apparent
--- NOTE | 2020-09-27 21:02 | XRay Report ---
XR hip RT min 2V CLINICAL HISTORY: Post-Operative implant position COMPARISON STUDY: Right hip 09/26/2020. FINDINGS: Status post internal fixation of right femoral neck fracture with 3 cannulated screws. The hardware appears intact. No dislocation. Skin dottie are in place. IMPRESSION: Status post internal fixation of a right femoral neck fracture. The hardware appears int act. ACT 112: Negative or not required by law. Electronically signed by: Petar Knight M.D. 09/27/2020 9:01 PM
--- NOTE | 2020-09-27 21:03 | Fluoroscopy Report ---
FL hip RT 2-3V CLINICAL HISTORY: CANNULATED SCREWS RT HIP COMPARISON STUDY: None. FLUOROSCOPY TIME: 1 minute and 30 seconds. FINDINGS: 2 fluoroscopic spot images of the right hip demonstrate internal fixation of the femoral ne ck fracture with 3 cannulated screws. The hardware appears intact. IMPRESSION: Fluoroscopy provided for internal fixation of a right femoral neck fracture. ACT 112: Negative or not required by law. Electronically signed by: Petar Knight M.D. 09/27/2020 9:01 PM
[2020-09-27] MEDS ORDERED: NALOXONE HCL 0.4 MG/1 ML VIAL/CARP IV PRN (21:32)
[2020-09-28] MEDS: ceFAZolin 1000MG 1,000 MG/7.5 ML SYR IV SCH ×2 (04:29→12:01)
[2020-09-28] MEDS: HYDROmorphone INJ 0.5 MG/0.5 ML SYR IV PRN (06:02)
[2020-09-28 06:16] LABS: Basophils # (auto) 0.01 K/uL (0-0.2); Basophils % (auto) 0.1 %; Hematocrit (blood only) 38.8 % (37-47); Immature Granulocytes # (auto) 0.01 K/uL (0.00-0.02); Immature Granulocytes % (auto) 0.1 %; Lymphocytes # (auto) 0.51 K/uL (1.2-3.4); Lymphocytes % (auto) 6.2 %; Mean Corpuscular Hemoglobin 32.1 pg (25-34); Mean Corpuscular Hgb Conc 33.5 g/dL (32-36); Mean Corpuscular Volume 95.8 fL (80-100); Mean Platelet Volume 8.9 fL (7.4-10.4); Monocytes # (auto) 0.45 K/uL (0.11-0.59); Monocytes % (auto) 5.4 %; Neutrophils # (auto) 7.29 K/uL (1.4-6.5); Neutrophils % (auto) 88.2 %; Platelet Count 345 K/uL (130-400); RDW Coefficient of Variation 12.3 % (11.5-14.5); RDW Standard Deviation 43.2 fL (36.4-46.3); Red Blood Count 4.05 M/uL (4.2-5.4); White Blood Count 8.27 K/uL (4.8-10.8)
[2020-09-28 07:00] LABS: BUN Creatinine Ratio 21.4 (10-20); Calcium 8.4 mg/dl (8.5-10.1); Creatinine Clr Calc Pharmacy 109.8 ml/min; Est GFR (African American) 117.7 ml/min; Est GFR (Non-African American) 101.6 ml/min; Magnesium 2.2 mg/dl (1.8-2.4); Phosphorus 2.9 mg/dl (2.5-4.9); Potassium 4.1 mmol/L (3.5-5.1)
--- NOTE | 2020-09-28 07:45 | Hospitalist Progress Note ---
Date of Service September 28, 2020 Assessment & Plan (1) Closed right hip fracture: Ms. Day is a 69y/o female with past medical history hypertension that presents today status post fall Right femoral neck fracture: -S/p right hip percutaneous femoral neck pinning -Ortho consulted (patient is to be nonweightbearing of the right lower extremity -Percocet 5 mg every 4 hours as needed -Toradol 15 mg IV every 6 as needed -Low-dose Dilaudid for breakthrough (8, 9, 10) pain -based off XR hip, patient with osteoporosis -would benefit from Vit D and Calcium supplementation until able to be started on bisphosphonate approximately 1 month after -will need rehab for strengthening and gait training following surgical fixation of fracture HTN: -restart oral medications following completion of procedure Code Status: Full code DVT ppx: heparin until procedure Admission and Anticipated Discharge Date Admission Date: September 26, 2020 Supervising Physician Co-Signing Physician Notes I personally examined the patient and verified all baptiste points of history and exam, discussed case, and agree with decision making with Dr Garcia pain controlled. Struggling with the fact that she would likely benefit from rehabwants to go home, but also seems to realize to a degree that she does not want to compromise her recovery rich noted nad heent nc at mmm breathing unlabored no accessory muscle use good effort. Skin shows no rashes no pallor or icterus. Neuro shows no focal deficits. Osteoporotic hip fracturerisks of being age/gender/prior deficiency/tobacco abusepostop. PT/OT eval and treat, was clear with patient that she would benefit most in the long-term from going to rehab. Outpatient bone health eval and treat DVT prophylaxisheparin subcu Otherwise as above Subjective Patient had minimal pain following surgical procedure yesterday, desires to transition away from Dilaudid to something that she would be able to take as a pill over the course of her rehab/after discharge. Was previously on bisphosphonate, however following discovery of potential risks of osteonecrosis of the jaw decided that this would be discontinued. Willing to discuss with PCP as outpatient, and additionally willing to start vitamin D and calcium supplementation again. Is somewhat uncertain whether or not she would desires to go to rehab as she feels like she has to me think that she is to be in charge of at home, even with family coming to the area to take care of other things. Review of Systems Review of Systems: All systems reviewed & are unremarkable except as noted in Subjective Physical Exam Constitutional: WD/WN, vitals as above Eyes: PERRL, conjunctivae normal, anicteric sclerae Respiratory: normal respiratory effort, lungs clear to auscultation Auscultation: no crackles, no rales, no rhonchi and no wheezes Cardiovascular: Rate/Rhythm: regular rate and regular rhythm Heart Sounds: no gallop, no murmur and no cardiac rub Vessels: normal peripheral pulses; no JVD Extremities: no edema Gastrointestinal (Abdomen): Inspection/Auscultation: normal bowel sounds; abdomen not distended Percussion/Palpation: abdomen soft; abdomen nontender and no guarding Neurologic: PERRL, EOMI, accommodation nl, no face palsy, no dysarthria CN's II-XI intact bilaterally and moves all extremities Psychiatric: Orientation: alert and oriented x 3 Results & Data Results & Data ([facility]) Vital Signs (Past 12 Hours) Vital Signs Temp Pulse Pulse Resp BP Pulse Ox 09/28/20 07:33 36.8 C 75 18 124/79 95 09/28/20 04:26 36.6 C 81 20 144/82 H 94 09/28/20 00:10 36.8 C 94 H 20 145/82 H 95 09/27/20 23:14 36.8 C 95 H 20 147/80 H 95 09/27/20 22:16 36.8 C 88 20 130/85 94 09/27/20 21:43 36.9 C 97 H 20 159/84 H 95 09/27/20 21:00 36.5 C 90 18 143/81 H 96 09/27/20 20:50 88 20 139/73 96 09/27/20 20:40 89 19 159/95 H 97 09/27/20 20:30 36.6 C 85 16 146/78 H 98 Resident Activity Tracking Resident Involvement: Resident Care Provided Care Provided: Adult Hospital Medicine
[2020-09-28] MEDS ORDERED: HYDROmorphone INJ 0.5 MG/0.5 ML SYR IV PRN ×2 (08:08)
[2020-09-28] MEDS: CALCIUM 600MG + VIT D 400 IU TAB PO SCH (08:26)
[2020-09-28] MEDS: amLODIPine BESYLATE 5 MG TAB PO SCH (08:26)
[2020-09-28] MEDS: ENOXAPARIN INJ 40 MG/0.4 ML SYR SQ SCH (08:26)
[2020-09-28] MEDS: MULTIVITAMIN TAB PO SCH (08:26)
[2020-09-28] MEDS: NICOTINE 14 MG/24 HR PATCH TD SCH (08:27)
[2020-09-28] MEDS: SODIUM CHLORIDE 0.9% 1000ML 1,000 ML IV SCH (10:48)
--- NOTE | 2020-09-28 11:00 | Orthopedic Progress Note ---
Date of Service September 28, 2020 Assessment & Plan (1) Fracture of hip, right, closed: Postop day 1 status post right hip percutaneous pinning -Ancef x24 then discontinue. -DVT prophylaxis: SCDs, teds, Lovenox daily -Nonweightbearing right lower extremity -PT/OT -Postoperative x-ray pending -A.m. lab as noted DC planning-patient is hoping to get into [facility] Admission and Anticipated Discharge Date Admission Date: September 26, 2020 Subjective Postop day 1 Patient sitting up in her chair at the bedside. No overt complaints this morning. Pain is controlled. States she went through her physical therapy session this morning already. Concerned about her nonweightbearing status and has decided to try to get to [facility] to work on her ambulation. Denies any shortness of breath, chest pain, lightheadedness. Physical Exam Physical Exam: Dressings are clean, dry, and intact. Thigh is soft and nontender. Calves are soft nontender. Neurovascular is intact. Toes are mobile. Results & Data ([facility]) Vital Signs (Past 12 Hours) Vital Signs Temp Pulse Pulse Resp BP Pulse Ox 09/28/20 07:33 36.8 C 75 18 124/79 95 09/28/20 04:26 36.6 C 81 20 144/82 H 94 09/28/20 00:10 36.8 C 94 H 20 145/82 H 95 09/27/20 23:14 36.8 C 95 H 20 147/80 H 95 Laboratory Results Laboratory Results WBC 8.27 K/uL (4.8-10.8) 09/28/20 05:34 RBC 4.05 M/uL (4.2-5.4) L 09/28/20 05:34 Hgb 13.0 g/dL (12.0-16.0) 09/28/20 05:34 Hct 38.8 % (37-47) 09/28/20 05:34 MCV 95.8 fL (80-100) 09/28/20 05:34 MCH 32.1 pg (25-34) 09/28/20 05:34 MCHC 33.5 g/dL (32-36) 09/28/20 05:34 RDW Std Deviation 43.2 fL (36.4-46.3) 09/28/20 05:34 RDW Coeff of Maria De Jesus 12.3 % (11.5-14.5) 09/28/20 05:34 Plt Count 345 K/uL (130-400) 09/28/20 05:34 MPV 8.9 fL (7.4-10.4) 09/28/20 05:34 Immature Gran % (Auto) 0.1 % 09/28/20 05:34 Neut % (Auto) 88.2 % 09/28/20 05:34 Lymph % (Auto) 6.2 % 09/28/20 05:34 [place] % (Auto) 5.4 % 09/28/20 05:34 Eos % (Auto) 0.0 % 09/28/20 05:34 Baso % (Auto) 0.1 % 09/28/20 05:34 Neut # (Auto) 7.29 K/uL (1.4-6.5) H 09/28/20 05:34 Lymph # (Auto) 0.51 K/uL (1.2-3.4) L 09/28/20 05:34 [place] # (Auto) 0.45 K/uL (0.11-0.59) 09/28/20 05:34 Eos # (Auto) 0.00 K/uL (0-0.5) 09/28/20 05:34 Baso # (Auto) 0.01 K/uL (0-0.2) 09/28/20 05:34 Immature Gran # (Auto) 0.01 K/uL (0.00-0.02) 09/28/20 05:34 PT 10.1 Seconds (9.0-12.0) 09/26/20 12:08 INR 1.0 (0.9-1.1) 09/26/20 12:08 APTT 25.5 Seconds (21.0-31.0) 09/26/20 12:08 PTT Ratio 1.0 09/26/20 12:08 Sodium 136 mmol/L (136-145) 09/28/20 05:34 Potassium 4.1 mmol/L (3.5-5.1) 09/28/20 05:34 Chloride 107 mmol/L (98-107) 09/28/20 05:34 Carbon Dioxide 21 mmol/L (21-32) 09/28/20 05:34 Anion Gap 8.0 (3-11) 09/28/20 05:34 BUN 9 mg/dl (7-18) 09/28/20 05:34 Creatinine 0.44 mg/dl (0.6-1.2) L 09/28/20 05:34 Est Cr Clr Drug Dosing 109.8 ml/min 09/28/20 05:34 Est GFR ( Amer) 117.7 ml/min 09/28/20 05:34 Est GFR (Non-Af Amer) 101.6 ml/min 09/28/20 05:34 BUN/Creatinine Ratio 21.4 (10-20) H 09/28/20 05:34 Glucose 125 mg/dl (70-99) H 09/28/20 05:34 Calcium 8.4 mg/dl (8.5-10.1) L 09/28/20 05:34 Phosphorus 2.9 mg/dl (2.5-4.9) 09/28/20 05:34 Magnesium 2.2 mg/dl (1.8-2.4) 09/28/20 05:34 Total Bilirubin 0.3 mg/dl (0.2-1) 09/26/20 12:08 AST 20 U/L (15-37) 09/26/20 12:08 ALT 27 U/L (12-78) 09/26/20 12:08 Alkaline Phosphatase 84 U/L (45-117) 09/26/20 12:08 Total Protein 7.5 gm/dl (6.4-8.2) 09/26/20 12:08 Albumin 4.2 gm/dl (3.4-5.0) 09/26/20 12:08 Globulin 3.3 gm/dl (2.5-4.0) 09/26/20 12:08 Albumin/Globulin Ratio 1.3 (0.9-2) 09/26/20 12:08 Urine Color Yellow 09/26/20 12:35 Urine Appearance Clear (Clear) 09/26/20 12:35 Urine pH 7.5 (4.5-7.5) 09/26/20 12:35 Ur Specific [place] 1.011 (1.000-1.030) 09/26/20 12:35 Urine Protein Negative (Negative) 09/26/20 12:35 Urine Glucose (UA) Negative (Negative) 09/26/20 12:35 Urine Ketones Trace (Negative) H 09/26/20 12:35 Urine Blood Negative (Negative) 09/26/20 12:35 Urine Nitrite Negative (Negative) 09/26/20 12:35 Urine Bilirubin Negative (Negative) 09/26/20 12:35 Urine Urobilinogen Negative (Negative) 09/26/20 12:35 Ur Leukocyte Esterase Trace (Negative) H 09/26/20 12:35 Urine WBC (Auto) 1-5 /hpf (0-5) 09/26/20 12:35 Urine RBC (Auto) 0-4 /hpf (0-4) 09/26/20 12:35 U Hyaline Cast (Auto) 0 /lpf (0-5) 09/26/20 12:35 U Epithel Cells (Auto) 5-10 /lpf (0-5) H 09/26/20 12:35 Urine Bacteria (Auto) Negative (Negative) 09/26/20 12:35 COVID-19 Eval Order Covid19 at [facility] 09/26/20 12:17 SARS-CoV-2 (PCR) NEGATIVE (Negative) 09/26/20 12:17 Blood Type O Positive 09/26/20 12:08 Antibody Screen NEGATIVE 09/26/20 12:08 Hip X-Ray 09/27/20 20:36 XR hip RT min 2V CLINICAL HISTORY: Post-Operative implant position COMPARISON STUDY: Right hip 09/26/2020. FINDINGS: Status post internal fixation of right femoral neck fracture with 3 cannulated screws. The hardware appears intact. No dislocation. Skin dottie are in place. IMPRESSION: Status post internal fixation of a right femoral neck fracture. The hardware appears intact. ACT 112: Negative or not required by law. Electronically signed by: Petar Knight M.D. 09/27/2020 9:01 PM (1) Fracture of hip, right, closed Encounter type: initial encounter Qualified Code(s): S72.001A - Fracture of unspecified part of neck of right femur, initial encounter for closed fracture
[2020-09-28] MEDS: oxyCODONE/ACETAMINOPHEN 5mg/325mg TAB PO PRN ×2 (11:33→22:21)
[2020-09-28] MEDS: KETOROLAC TROMETHAMINE 15 MG/ML VIAL IV PRN (17:24)
--- NOTE | 2020-09-28 20:36 | Billing Data ---
Date of Service September 28, 2020 Coding Level of Care Code 18441 Subseq Hosp Care Lvl 2
[2020-09-29] MEDS: KETOROLAC TROMETHAMINE 15 MG/ML VIAL IV PRN (06:19)
[2020-09-29] MEDS: NICOTINE 14 MG/24 HR PATCH TD SCH (07:47)
[2020-09-29] MEDS: MULTIVITAMIN TAB PO SCH (08:12)
[2020-09-29] MEDS: CALCIUM 600MG + VIT D 400 IU TAB PO SCH (08:12)
[2020-09-29] MEDS: ENOXAPARIN INJ 40 MG/0.4 ML SYR SQ SCH (08:12)
[2020-09-29] MEDS: amLODIPine BESYLATE 5 MG TAB PO SCH (08:12)
--- NOTE | 2020-09-29 10:18 | Discharge Summary ---
Date of Service September 29, 2020 Admission HPI Per Admitting Provider This is a 69-year-old female with past medical history hypertension that presents today status post fall. Patient is pleasant good historian. Patient raises [facility], will bring 1 to a groomer today. The dog became nervous and pulled the leash. Patient fell, landing on her right side. She did not pass out or strike her head. She was able to get up on her own power and drove home. She was started to have right hip pain which prompted her to come to the emergency room for further evaluation. In the ER, plain x-ray showed an impacted right femoral neck fracture. Patient is now being admitted for further treatment of this. Patient's main complaint is right hip pain which is consistent with her injury. There is no back or distal extremity pain. She also denies any systemic symptoms such as chest pain, shortn ess of breath, dyspnea, abdominal pain, or other issues at this time. Admission Exam Per Admitting Provider Constitutional: + thin and cooperative; no acute distress ENMT: external ear and nose normal, oropharynx normal Neck: trachea midline, no thyromegaly Respiratory: normal respiratory effort, lungs clear to auscultation Cardiovascular: RRR, no murmur, no edema Vessels: no JVD and no carotid bruit Extremities: no edema Gastrointestinal (Abdomen): normal bowel sounds, soft, nontender, no hepatosplenomegaly Musculoskeletal: no cyanosis or clubbing, extremities motor strength 5/5 Right extremity warm, good DP/PT pulses. Slightly shortened and externally rotated Neurologic: PERRL, EOMI, accommodation nl, no face palsy, no dysarthria Principal Diagnosis Right hip fracture Discharge Exam Constitutional cooperative and comfortable Eyes PERRL, conjunctivae normal, anicteric sclerae ENMT external ear and nose normal, oropharynx normal Neck normal visual inspection and trachea midline Respiratory normal respiratory effort, lungs clear to auscultation Cardiovascular Rate/Rhythm: regular rate and regular rhythm Extremities: no edema Gastrointestinal (Abdomen) Percussion/Palpation: abdomen soft; abdomen nontender, no guarding and abdomen not rigid Musculoskeletal Head/Neck/Chest: normocephalic and head atraumatic LE N/v intact Skin no rashes, warm and dry Neurologic moves all extremities and awake Psychiatric A+Ox3, euthymic affect tearful at times related to situational stress Discharge Data Allergies Allergy/AdvReac Type Severity Reaction Status Date / Time Penicillins Allergy Verified 09/26/20 11:57 Consultations 09/26/20 12:06 ED Decision to Admit Stat 09/26/20 15:06 Consult Orthopedic Surgery Routine Procedures Performed Operation Date: 09/27/20 07:00 Actual Procedures p Right Hip Percutaneous Pinning(Right) - Wander Damon DO Ordered Studies 09/27/20 17:00 FL hip RT 2-3V Routine CLINICAL HISTORY: Post-Operative implant position COMPARISON STUDY: Right hip 09/26/2020. FINDINGS: Status post internal fixation of right femoral neck fracture with 3 cannulated screws. The hardware appears intact. No dislocation. Skin dottie are in place. IMPRESSION: Status post internal fixation of a right femoral neck fracture. The hardware appears intact. XR hip RT 2V w pelvis CLINICAL HISTORY: Fall. Right hip pain. COMPARISON STUDY: None. FINDINGS: Slightly impacted right femoral neck fracture. No dislocation. The visualized pelvic bones and left hip are intact. IMPRESSION: Slightly impacted right femoral neck fracture Hospital Course (1) Closed right hip fracture: Ms. Day is a 69y/o female with past medical history hypertension that presents today status post fall. She sustained a right femoral neck fracture with right hip percutaneous femoral neck pinning on evening of 09/27. She was tearful over the situation as had plans with family to travel this summer to see all her children. She had multiple risk factors that contributed to poor bone health. She has been an active smoker; she notes that she is going to quit as acknowledges that this will help her overall health. Will follow up with PCP to discuss possible options to help aide in this if needed. She has hx of osteopor osis but declined pharmacologic treatment with bisphophonates (Fear of osteonecrosis of jaw) and fear of side effects of Vit D and Calcium. Vitamin D and Calcium were started in the hospital and discussed/dispelled concerns over medications. Discussed that osteonecrosis of jaw is very rare with bisphosphonates and also most of the times reversible. She may need follow up for depression, was tearful here but this was most liekly situational depression. She appears to have a strong social support system from her family. She was discharged to [facility]. Right femoral neck fracture: -S/p right hip percutaneous femoral neck pinning -Percocet 5 mg every 4 hours as needed -Toradol 15 mg IV every 6 as needed -Low-dose Dilaudid for breakthrough (8, 9, 10) pain -based off XR hip, patient with osteoporosis -Vit D and Calcium supplementation until able to be started on bisphosphonate approximately 1 month after -will need rehab for strengthening and gait training following surgical fixation of fracture HTN: -restarted after surgical procedure Tobacco Cessation - If has not had this year, would need outpatient CT Low Dose Lung Cancer screening as meets USPTSF guidelines, non-urgent. - Smoking cessation provided here; she notes that she is going to be tobacco free and is not going to smoke anymore. Code Status: Full code DVT ppx: heparin until procedure Total Time Total Time Spent Total Time Spent (In Minutes): <30 Total Time Includes: Examination of the Patient, Discharge Planning, Medication Reconciliation and Communication With Other Providers Discharge Plan Discharge Items Patient Disposition: Transfer Inpatient Rehab Fac Reason For Visit: HIP FRACTURE Discharge Diagnosis: Right Subcapital Hip Fx Activity: Per Instructions section Weightbearing: Right non-weightbearing Weightbearing Comment: non weightbearing on the right foot with walker Non-emergency contact: Surgeon Call non-emergency contact if: you have any medication questions, your pain is not controlled, your temperature is above 101.5, your wound has increased redness and your wound has increased drainage Follow-up/Referrals: Pradeep Whitten MD [Primary Care Provider] - Diet: Regular Addtl Attending Provider Instructions: Bear Yusuf were admitted to the hospital for surgical repair of a right hip fracture you sustained. Your bones are fragile which is a condition called osteoporosis, which makes bones more susceptible to fracture. To help prevent future fractures by promoting bone health, we recommend that you continue to be committed to being tobacco free. Smoking has adverse effect of weakening bone strength. Also, we have started a supplement of Vitamin D and Calcium to help promote bone health as well. You will take this medication daily. Please follow up with your Primary Care Provider to discuss bisphosphonate therapy to strengthen your bones. Feelings of depression and being tearful are a normal reaction to a stressful illness or injury. If you are still experiecing depressed mood, please discuss this with your primary care provider for treatment options. We wish you the best of luck with your recovery. You are very motivated and we wish you the best of page with a speedy recovery! Addtl Buncher Machine Provider Instructions: [facility] DISCHARGE INSTRUCTIONS: HIP FRACTURE SELF CARE INSTRUCTIONS: A. You are to ambulate with a walker or crutches for approximately 6 weeks. B. You are NON-WEIGHT BEARING on your operative lower extremity for at least 6 weeks. C. Wear low heeled shoes with non-slip soles D. Be sure that your floors are free of things that could trip you throw rugs, electrical cords, and small objects. Avoid wet and waxed floors, especially with crutches/walker/cane. E. Try to walk several times a day with rest periods between. F. You may shower 48 hours after surgery and get the incision area wet, but DO NOT soak or submerge incision area in water. (No baths, swimming pools, hot tubs) G. You may have a large, band-aid like dressing over your incision (Aquacel). This will remain on your incision for 7 days, and then can be removed. You CAN shower with this on. If incision is leaking through the dressing, please call the office . H. Do NOT apply soap or any ointment/lotions directly over incision. I. You may use ice as needed to operative site. SPECIAL CARE INSTRUCTIONS: VERY IMPORTANT TO READ AND REVIEW A. You may be at risk for phlebitis or blood clots. a. Wear surgical stockings (DUKE hose) for 2 weeks after surgery to improve circulation and reduce swelling. b. Take LOVENOX 40mg SQ daily for 4 weeks or as directed. This is your blood thinner. c. If you are on Coumadin- you will have daily/weekly blood work to monitor your levels. This will be done by either your family physician/pretzel packer (if you are on Coumadin chronically) versus your orthopedic surgeon. Expect a phone call the day of or the day after your blood work is drawn to adjust your dose accordingly. B. There are a few signs you need to watch for after you are home. Call [facility] at [phone] if you experience any of the following: a. If you have a temperature of 101 degrees or higher. b. Sudden increase in pain in your hip not relieved by rest or pain medication. c. Any fluid or drainage from the incision; redness of the incision. d. Shortness of breath or chest pain. B. Please call [facility] at [phone] if you have any questions or concerns about your operation or recovery. C. Call your physician if: a. Temperature is greater than 101 degrees (F). b. Pain is not relieved by prescribed pain medications. c. Increase drainage or redness from incision. d. Unanswered questions or concerns. D. Pain Medication: a. You will be prescribed pain medication upon discharge that should last till your first post-operative appointment. b. If you experience nausea and/or skin rash, discontinue this medication and contact our office for an alternative medication. c. Caution- narcotic pain medication can cause constipation. FOLLOW UP VISIT: Please call [facility] at [phone] to schedule a follow up appointment 10-14 days from the date of your surgery date. Pending Studies at Discharge: No Stand-Alone Forms: My [facility] [employer] Skilled Items Patient informed of condition?: Yes DNR: No Discharge Level of Care: Acute rehab Communicable Disease: No Discharge Prognosis: Stable Lines: None Urinary Catheter: No Medications and DC Order Prescriptions: New Caltrate 600-D Plus Minerals 600 mg calcium- 800 unit-50 mg Tablet 1 tab PO QAM 30 Days Qty: 30 RF: 5 Continued Multivitamin Gummies 200 mcg Tablet,Chewable 2 tab PO QAM RF: 0 amlodipine 5 mg tablet 5 mg PO QAM RF: 0 Discontinued calcium phosphate-vitamin D3 [Caltrate Gummy Bites] 250 mg-10 mcg (400 unit) Tablet,Chewable 2 tab PO QAM RF: 0 Discharge Orders: Discharge Order (Routine); Ordered 09/29/20 Ordered By: Sandor Kwok/Other Patient Handouts: Osteoporosis Prevent Bone Loss, Calcium Supplements, Getting Support for Quitting Smoking, Coping with Smoking Withdrawal, Understanding Hip Fractures, After a Hip Fracture: Common Questions, How Bones Heal, Fall Prevention Assessing Risk, Exercises to Prevent Falls, Kicking the Smoking Habit, Vitamin D Admission Data Admit Date/Time: 09/26/20 12:34 Attending Provider: Joey Lujan Admit Provider: Neymar Dwyer Primary Care Provider: Pradeep Whitten V. Other Providers: Neymar Dwyer ; Wander Damon ; [facility] Other Interventions: Discharge Summary Assessment (RN) Last Done: 09/29/20 10:54 Supervising Physician Co-Signing Physician Notes I personally examined the patient and verified all baptiste points of history and exam, discussed case, and agree with decision making with Dr Stanley ready to go to rehab. no new complaints vitlas noted nad heent nc at mmm breathing unlabored no accessory muscle use good effort. Skin shows no rashes no pallor or icterus. Neuro shows no focal deficits. Osteoporotic hip fracturerisks of being age/gender/prior deficiency/tobacco abusepostop. PT/OT at rehab. Outpatient bone health eval and treat DVT prophylaxisheparin subcu utilized while here Otherwise as above Resident Activity Tracking Resident Involvement: Resident Care Provided Care Provided: Adult Hospital Medicine
--- NOTE | 2020-09-29 10:35 | Orthopedic Progress Note ---
Date of Service September 29, 2020 Assessment & Plan (1) Fracture of hip, right, closed: Postop day 2 status post right hip percutaneous pinning -Ancef x24 then discontinue. -DVT prophylaxis: SCDs, teds, Lovenox daily -Nonweightbearing right lower extremity -PT/OT -Postoperative x-ray pending DC planning- [facility] if accepted. Orthopedics will sign off at this time. Please call with any questions. DC instructions placed in chart. Admission and Anticipated Discharge Date Admission Date: September 26, 2020 Subjective POD 2 Pt ambulating from the BR to her bed with walker. Appears to be doing well. State she had some pain this AM down the thigh but is better now. No new complaints . States she is planning on going to [facility] rehab upon discharge. Physical Exam Physical Exam: Dressings C/D/I. No new changes on exam. NV intact. Toes mobile. Results & Data ([facility]) Vital Signs (Past 12 Hours) Vital Signs Temp Pulse Pulse Resp BP Pulse Ox 09/29/20 07:34 36.9 C 67 18 120/70 95 09/28/20 23:15 36.7 C 82 20 123/69 94 (1) Fracture of hip, right, closed Encounter type: initial encounter Qualified Code(s): S72.001A - Fracture of unspecified part of neck of right femur, initial encounter for closed fracture
--- NOTE | 2020-09-29 19:42 | Billing Data ---
Date of Service September 29, 2020 Coding Level of Care Code D/C Day Management <30 mins
== END 2020-09-29 13:26 | DRG 482 ==
LOC: ED 10:02 → SUATTDRO 12:34 → 3W 12:34

== ENCOUNTER 2022-01-02 19:02 | Observation (INO) ==
--- NOTE | 2022-01-02 19:25 | Emergency Department Note ---
History of Present Illness General Chief complaint: Dizziness Stated complaint: dizziness Time Seen by Provider: 01/02/22 19:16 Source: patient Mode of arrival: EMS Limitations: no limitations History of Present Illness Provider complaint: dizziness This is a 71-year-old female who presents emergency department due to concern for dizziness. Patient states dizziness began between 530 and 6 this evening. She states she felt well earlier in the day, ate and drink normally, perform normal activities and ran errands. Patient did note that after having lunch with a friend at a restaurant, she did feel slightly queasy, however no overt nausea or vomiting. Patient states when dizziness started it was abrupt and she felt as though she was lightheaded but things were also spinning. She was concerned that she may fall or be injured or her condition worsen as she lives alone. No prior episodes of dizziness/vertigo. States she was very nauseated following dizziness. She did contact EMS and was brought in here for evaluation. She says since arriving here her symptoms have begun to resolve spontaneously. Patient states yesterday she felt slightly "fuzzy" did not have any overt dizziness. No recent change in medications. She denies any recent illness, fevers or chills. She denies any recent trauma, no history of TBI. Patient admits to poor water intake daily. Pt seen during a time of high acuity and national emergency pandemic while wearing PPE. Home Medications Medication Instructions Recorded Confirmed Type multivitamin with minerals-folic 2 tab PO QAM 09/26/20 12/06/21 History acid 200 mcg chewable tablet (Multivitamin Gummies) calcium 600 mg-D3 800 unit-mag11 1 tab PO QAM 30 days #30 tabs 09/29/20 12/06/21 Rx 50 [id number]-[id number]-dennys-s.borat tablet (Caltrate 600-D Plus Minerals) acetaminophen 325 mg tablet 325 mg PO QID PRN 10/05/20 12/06/21 History alprazolam 0.25 mg tablet 0.25 mg PO .COMPLEX PRN anxiety 01/02/21 12/06/21 Rx #14 tabs cholecalciferol (vitamin D3) 50 50 mcg PO DAILY #90 caps 01/02/21 12/06/21 Rx mcg (2,000 unit) capsule amlodipine 5 mg tablet 5 mg PO QAM #30 tabs 11/06/21 12/06/21 Rx meclizine 25 mg tablet 25 mg PO TID PRN dizziness #30 tabs 01/03/22 Rx Allergies Allergy/AdvReac Type Severity Reaction Status Date / Time Penicillins Allergy Verified 12/06/21 08:16 Past Med/Surg History Medical History Anxiety Anxiety Bilateral sensorineural hearing loss Bilateral tinnitus Bronchitis Conductive hearing loss of right ear with unrestricted hearing of left ear Fear of flying Fracture of hip, right, closed History of tachycardia Hypertension Nicotine dependence Osteoporosis Osteoporosis Poor appetite Pulsatile tinnitus, left ear Skin cancer Vitamin D deficiency Surgical History H/O exploratory laparotomy H/O shoulder surgery Family History Father Alzheimer disease Mother Dementia Osteoporosis Brother Suicide Sister Osteoporosis Ankylosing spondylitis Denies family history of Colon cancer Ovarian cancer Prostate cancer Myocardial infarction Breast cancer Social History Smoking Status: Former smoker Tobacco Type: Cigarettes Cigarettes Per Day: 10; Hx Alcohol Use: Yes Alcohol type: beer Hx Substance Use: No Preferred Language: Jordanian Communication Ability: Effective Visual Impairment: No Limitations Hearing Ability: Normal Costume Shop Manager Required: No Beliefs That Will Affect Care: None marital status: Single Current Living Situation: Alone current occupational status: retired current occupation: homemaker Feels Safe at Home: Yes Dental Care, Regularly: Yes Physical Activity Frequency: Other Physical Activity Frequency Comment: Frequesnt exercise Seatbelt Use: always Sunscreen Use: No Assistive Devices: None Review of Systems A total of 10 systems reviewed and were otherwise negative All systems reviewed & are unremarkable except as noted in HPI & below Physical Exam Vital Signs Vital Signs - 24 hr 01/02/22 19:05 01/02/22 19:15 01/02/22 21:10 Temperature 37.1 C Temperature Source Oral Pulse Rate 105 H Pulse Rate [Apical] 56 L Respiratory Rate 18 20 Respiratory Effort / Characteristics Non-Labored Spontaneous Non-Labored Spontaneous Respiratory Depth Normal Normal Respiratory Pattern Regular Regular Blood Pressure 167/118 H Blood Pressure [Right Arm] 182/93 H Blood Pressure Mean 134 Blood Pressure Mean [Right Arm] 122 Blood Pressure Position Sitting Blood Pressure Position [Right Arm] Sitting Pulse Oximetry 97 96 98 Oxygen Delivery Method Room Air Room Air Room Air Sepsis Recent Fever Within 48 Hours No Sepsis New/Unexplained Change in Mental Status N/A Sepsis Action Taken by Nursing No Action Required 01/02/22 22:38 01/03/22 00:00 Temperature Temperature Source Pulse Rate Pulse Rate [Apical] 98 H 83 Respiratory Rate 18 20 Respiratory Effort / Characteristics Non-Labored Spontaneous Respiratory Depth Normal Respiratory Pattern Regular Blood Pressure Blood Pressure [Right Arm] 178/107 H 178/107 H Blood Pressure Mean Blood Pressure Mean [Right Arm] 130 130 Blood Pressure Position Blood Pressure Position [Right Arm] Sitting Pulse Oximetry 99 98 Oxygen Delivery Method Room Air Room Air Sepsis Recent Fever Within 48 Hours Sepsis New/Unexplained Change in Mental Status Sepsis Action Taken by Nursing GENERAL: alert, well appearing, well nourished, no distress, non-toxic EYE EXAM: normal conjunctiva, PERRL and EOM's grossly intact, no obvious nystagmus OROPHARYNX: no exudate, no erythema, lips, buccal mucosa, and tongue normal and mucous membranes are moist NECK: supple, no nuchal rigidity, no adenopathy, non-tender LUNGS: Clear to auscultation. Normal chest wall mechanics, no w/r/r HEART: no murmurs, S1 normal and S2 normal ABDOMEN: abdomen soft, non-tender, normo-active bowel sounds, no masses, no rebound or guarding. BACK: Back is symmetrical on inspection and there is no deformity, no midline tenderness, no CVA tenderness. SKIN: no rashes and no bruising UPPER EXTREMITIES: upper extremities are grossly normal. FROM, nml pulses b/l. LOWER EXTREMITIES: No pitting edema. FROM, nml pulses b/l. NEURO EXAM: Normal sensorium, cranial nerves II-XII grossly intact, normal speech, no gross weakness of arms, no gross weakness of legs. Normal finger- nose, negative pronator drift. Normal [id number] gross sensation intact. Course Course 0011: No spinning at this time although patient states she still feels "fuzzy". Mild hypertension still noted. Patient tolerating sips p.o. at bedside and she denies any nausea. We discussed all results. 0020: Patient mildly ataxic with ambulatory trial. Patient states she feels uncomfortable going home due to residual symptoms and not feeling normal and living by herself. 0058: Patient now stating she wants to go home because she is concerned that she will get COVID while in the hospital. Repeat troponin still pending. She is attempting to find a ride. 0215: Repeat troponin elevated. Administered Medications Discontinued Medications Alprazolam (Alprazolam 0.5 Mg Tablet) 0.25 mg PO NOW STA Stop: 01/03/22 03:25 Last Admin: 01/03/22 03:52 Dose: 0.25 mg Documented By: DESTINEY Amlodipine Besylate (Amlodipine Besylate 5 Mg Tab) 5 mg PO QAM LES Stop: 02/02/22 08:59 Last Admin: 01/03/22 09:14 Dose: 5 mg Documented By: SHABBIR Diazepam (Diazepam 5 Mg/Ml Inj 10ml Vial) 1 mg IV NOW STA Stop: 01/03/22 03:15 Last Admin: 01/03/22 03:52 Dose: 1 mg Documented By: DESTINEY Sodium Chloride (Nss 1000ml) 1,000 mls @ 125 mls/hr IV .Q8H LES Stop: 02/01/22 19:44 Last Infusion: 01/03/22 13:04 Dose: 0 mls/hr Documented By: Admin: 01/03/22 12:06 Dose: 125 mls/hr Documented By: Infusion: 01/03/22 12:06 Dose: 0 mls/hr Documented By: Admin: 01/03/22 03:57 Dose: 125 mls/hr Documented By: Infusion: 01/03/22 03:57 Dose: 0 mls/hr Documented By: Admin: 01/02/22 20:17 Dose: 125 mls/hr Documented By: ISRRAEL Ioversol (Optiray 300 500ml) 118 ml IV ONCE ONE Stop: 01/02/22 20:50 Last Admin: 01/02/22 20:53 Dose: 118 ml Documented By: IDALMIS Labetalol HCl (Labetalol Hcl Iv 5 Mg/Ml 20ml) 5 mg IV NOW STA Stop: 01/03/22 02:42 Last Admin: 01/03/22 03:55 Dose: Not Given Documented By: DESTINEY Meclizine HCl (Meclizine Hcl 25 Mg Tab) 25 mg PO NOW STA Stop: 01/02/22 21:57 Last Admin: 01/02/22 22:04 Dose: 25 mg Documented By: ISRRAEL Meclizine HCl (Meclizine Hcl 25mg Home Pack) 1 each PO UD ONE Stop: 01/03/22 00:30 Last Admin: 01/03/22 02:40 Dose: Not Given Documented By: ISRRAEL Ondansetron HCl (Ondansetron Inj 2 Mg/Ml 2 Ml Vial) 4 mg IV NOW STA Stop: 01/03/22 02:42 Last Admin: 01/03/22 03:55 Dose: Not Given Documented By: DESTINEY Pneumococcal Polyvalent Vaccine (Pneumococcal Polysaccharide Vaccine 25mcg/0.5ml Vial/Syr) 25 mcg IM .ONCE ONE Stop: 01/03/22 12:01 Last Admin: 01/03/22 13:05 Dose: Not Given Documented By: PATRICA Potassium Chloride (Potassium Chloride Crtab 20 Meq Tabcr) 40 meq PO NOW STA Stop: 01/03/22 01:03 Last Admin: 01/03/22 01:20 Dose: 40 meq Documented By: ISRRAEL Medical Decision Making Differential Diagnosis Differential diagnosis includes etiologies such as benign positional vertigo, dehydration, hypovolemia, anemia, tumor, infection, hypoglycemia, electrolyte abnormalities, cardiac sources, intracerebral event, toxicologic, neurologic, as well as others were entertained. Medical Records Attestation: I reviewed the patient's medical records. Home Medications Current Medication List: was personally reviewed by me Laboratory Data Attestation: I reviewed the patient's lab results. Result diagrams: 01/02/22 19:11 01/02/22 19:11 Lab Results 01/02/22 01/02/22 01/02/22 Range/Units 19:11 19:11 19:11 WBC 5.96 (4.8-10.8) K/ul RBC 4.11 (3.93-5.22) M/uL Hgb 13.1 (12.0-16.0) g/dl Hct 38.4 (34.1-44.9) % MCV 93.4 (80.0-100.0) fL MCH 31.9 (25.0-34.0) pg MCHC 34.1 (32.0-36.0) g/dL RDW Std Deviation 41.3 (36.4-46.3) fL RDW Coeff of Maria De Jesus 12.0 (11.5-14.5) % Plt Count 309 (130-400) K/uL MPV 9.4 (9.4-12.3) fL Immature Gran % (Auto) 0.2 % Neut % (Auto) 50.2 % Lymph % (Auto) 35.4 % Gillespie % (Auto) 11.7 % Eos % (Auto) 1.3 % Baso % (Auto) 1.2 % Neut # (Auto) 2.99 (1.4-6.5) K/uL Lymph # (Auto) 2.11 (1.2-3.4) K/uL [place]pie # (Auto) 0.70 (0.24-0.82) K/uL Eos # (Auto) 0.08 (0-0.50) K/uL Baso # (Auto) 0.07 (0-0.2) K/uL Immature Gran # (Auto) 0.01 (0.00-0.02) K/uL Sodium 136 (136-145) mmol/L Potassium 3.3 L (3.5-5.1) mmol/L Chloride 103 (98-107) mmol/L Carbon Dioxide 19 L (21-32) mmol/L Anion Gap 14 H (3-11) BUN 22 (6-23) mg/dl Creatinine 0.67 (0.6-1.2) mg/dl Est Cr Clr Drug Dosing 67.3 ml/min Est GFR ( Amer) 101.1 ml/min Est GFR (Non-Af Amer) 87.2 ml/min BUN/Creatinine Ratio 32.8 H (10-20) Glucose 121 H (70-99(Fasting)) mg/dl Calcium 9.4 (8.5-10.1) mg/dl Magnesium 1.9 (1.7-2.4) mg/dl Total Bilirubin 0.4 (0.2-1.0) mg/dl AST 17 (13-39) U/L ALT 13 (7-52) U/L Alkaline Phosphatase 88 (34-104) U/L Troponin I High Sens 5.7 (0-14) pg/ml Total Protein 7.2 (6.0-8.3) gm/dl Albumin 4.7 (3.4-5.0) gm/dl Globulin 2.5 (2.5-4.0) gm/dl Albumin/Globulin Ratio 1.9 (0.9-2) Lipase 12 (11-82) U/L TSH 2.287 (0.300-4.500) uIu/ml Urine Color Urine Appearance (Clear) Urine pH (4.5-7.5) Ur Specific [place] (1.000-1.030) Urine Protein (Negative) Urine Glucose (UA) (Negative) Urine Ketones (Negative) Urine Blood (Negative) Urine Nitrite (Negative) Urine Bilirubin (Negative) Urine Urobilinogen (Negative) Ur Leukocyte Esterase (Negative) Urine WBC (Auto) (0-5) /hpf Urine RBC (Auto) (0-4) /hpf U Hyaline Cast (Auto) (0-5) /lpf U Epithel Cells (Auto) (0-5) /lpf Urine Bacteria (Auto) (Negative) Lyme Disease IgG Ab (Negative) Lyme Disease IgM Ab (Negative) SARS-CoV-2, RNA, NAAT (NEGATIVE) 01/02/22 01/02/22 01/03/22 Range/Units 19:11 20:15 00:53 WBC (4.8-10.8) K/ul RBC (3.93-5.22) M/uL Hgb (12.0-16.0) g/dl Hct (34.1-44.9) % MCV (80.0-100.0) fL MCH (25.0-34.0) pg MCHC (32.0-36.0) g/dL RDW Std Deviation (36.4-46.3) fL RDW Coeff of Maria De Jesus (11.5-14.5) % Plt Count (130-400) K/uL MPV (9.4-12.3) fL Immature Gran % (Auto) % Neut % (Auto) % Lymph % (Auto) % Gillespie % (Auto) % Eos % (Auto) % Baso % (Auto) % Neut # (Auto) (1.4-6.5) K/uL Lymph # (Auto) (1.2-3.4) K/uL [place] # (Auto) (0.24-0.82) K/uL Eos # (Auto) (0-0.50) K/uL Baso # (Auto) (0-0.2) K/uL Immature Gran # (Auto) (0.00-0.02) K/uL Sodium (136-145) mmol/L Potassium (3.5-5.1) mmol/L Chloride (98-107) mmol/L Carbon Dioxide (21-32) mmol/L Anion Gap (3-11) BUN (6-23) mg/dl Creatinine (0.6-1.2) mg/dl Est Cr Clr Drug Dosing ml/min Est GFR ( Amer) ml/min Est GFR (Non-Af Amer) ml/min BUN/Creatinine Ratio (10-20) Glucose (70-99(Fasting)) mg/dl Calcium (8.5-10.1) mg/dl Magnesium (1.7-2.4) mg/dl Total Bilirubin (0.2-1.0) mg/dl AST (13-39) U/L ALT (7-52) U/L Alkaline Phosphatase (34-104) U/L Troponin I High Sens 38.2 H D (0-14) pg/ml Total Protein (6.0-8.3) gm/dl Albumin (3.4-5.0) gm/dl Globulin (2.5-4.0) gm/dl Albumin/Globulin Ratio (0.9-2) Lipase (11-82) U/L TSH (0.300-4.500) uIu/ml Urine Color Yellow Urine Appearance Clear (Clear) Urine pH 5.5 (4.5-7.5) Ur Specific [place] 1.014 (1.000-1.030) Urine Protein Negative (Negative) Urine Glucose (UA) Negative (Negative) Urine Ketones Negative (Negative) Urine Blood Negative (Negative) Urine Nitrite Negative (Negative) Urine Bilirubin Negative (Negative) Urine Urobilinogen Negative (Negative) Ur Leukocyte Esterase 3+ H (Negative) Urine WBC (Auto) >30 H (0-5) /hpf Urine RBC (Auto) 0-4 (0-4) /hpf U Hyaline Cast (Auto) 1-5 (0-5) /lpf U Epithel Cells (Auto) >30 H (0-5) /lpf Urine Bacteria (Auto) Negative (Negative) Lyme Disease IgG Ab Negative (Negative) Lyme Disease IgM Ab Negative (Negative) SARS-CoV-2, RNA, NAAT (NEGATIVE) 01/03/22 01/03/22 Range/Units 02:58 02:58 WBC (4.8-10.8) K/ul RBC (3.93-5.22) M/uL Hgb (12.0-16.0) g/dl Hct (34.1-44.9) % MCV (80.0-100.0) fL MCH (25.0-34.0) pg MCHC (32.0-36.0) g/dL RDW Std Deviation (36.4-46.3) fL RDW Coeff of Maria De Jesus (11.5-14.5) % Plt Count (130-400) K/uL MPV (9.4-12.3) fL Immature Gran % (Auto) % Neut % (Auto) % Lymph % (Auto) % Gillespie % (Auto) % Eos % (Auto) % Baso % (Auto) % Neut # (Auto) (1.4-6.5) K/uL Lymph # (Auto) (1.2-3.4) K/uL [place] # (Auto) (0.24-0.82) K/uL Eos # (Auto) (0-0.50) K/uL Baso # (Auto) (0-0.2) K/uL Immature Gran # (Auto) (0.00-0.02) K/uL Sodium (136-145) mmol/L Potassium (3.5-5.1) mmol/L Chloride (98-107) mmol/L Carbon Dioxide (21-32) mmol/L Anion Gap (3-11) BUN (6-23) mg/dl Creatinine (0.6-1.2) mg/dl Est Cr Clr Drug Dosing ml/min Est GFR ( Amer) ml/min Est GFR (Non-Af Amer) ml/min BUN/Creatinine Ratio (10-20) Glucose (70-99(Fasting)) mg/dl Calcium (8.5-10.1) mg/dl Magnesium (1.7-2.4) mg/dl Total Bilirubin (0.2-1.0) mg/dl AST (13-39) U/L ALT (7-52) U/L Alkaline Phosphatase (34-104) U/L Troponin I High Sens 40.3 H (0-14) pg/ml Total Protein (6.0-8.3) gm/dl Albumin (3.4-5.0) gm/dl Globulin (2.5-4.0) gm/dl Albumin/Globulin Ratio (0.9-2) Lipase (11-82) U/L TSH (0.300-4.500) uIu/ml Urine Color Urine Appearance (Clear) Urine pH (4.5-7.5) Ur Specific [place] (1.000-1.030) Urine Protein (Negative) Urine Glucose (UA) (Negative) Urine Ketones (Negative) Urine Blood (Negative) Urine Nitrite (Negative) Urine Bilirubin (Negative) Urine Urobilinogen (Negative) Ur Leukocyte Esterase (Negative) Urine WBC (Auto) (0-5) /hpf Urine RBC (Auto) (0-4) /hpf U Hyaline Cast (Auto) (0-5) /lpf U Epithel Cells (Auto) (0-5) /lpf Urine Bacteria (Auto) (Negative) Lyme Disease IgG Ab (Negative) Lyme Disease IgM Ab (Negative) SARS-CoV-2, RNA, NAAT NEGATIVE (NEGATIVE) Imaging Data Radiologist's Impression: Head CT 01/02/22 00:00 CT OF THE HEAD WITHOUT CONTRAST CLINICAL HISTORY: dizziness COMPARISON STUDY: No previous studies for comparison. CT DOSE: 1146.38 mGy.cm TECHNIQUE: Helical axial images of the head were obtained without IV contrast. Automated exposure control was utilized for the study. A dose lowering technique was utilized adhering to the principles of ALARA. FINDINGS: No acute intracranial hemorrhage, midline shift or mass effect is present. White matter hypodensity suggests small vessel disease. Mild ventricular dilatation is likely due to atrophy. The basal cisterns are patent. No extra-axial collections are present. There are no findings to suggest acute dural sinus thrombosis or acute territorial infarct. No significant calvarial abnormalities are present. Visualized portions of the sinuses and mastoid air cells are clear. IMPRESSION: No acute intracranial findings. ACT 112: Negative or not required by law. Electronically signed by: Avila Cantu M.D. 01/02/2022 9:04 PM Chest X-Ray 01/02/22 19:31 XR chest 1V portable CLINICAL HISTORY: nausea COMPARISON STUDY: Chest radiograph September 26, 2020 FINDINGS: Lung volumes are normal. Lungs are clear. There is no pneumothorax. Possible small right pleural effusion. Cardiac size is normal. Mediastinal con tours are normal. There is no evidence for pulmonary edema. IMPRESSION: Possible small right pleural effusion. Pulmonary vascular congestion without overt pulmonary edema. ACT 112: Negative or not required by law. Electronically signed by: Avila Cantu M.D. 01/02/2022 8:20 PM Head CTA 01/02/22 19:31 CTA ANGIOGRAPHY OF THE HEAD CLINICAL HISTORY: dizziness COMPARISON STUDY: No previous studies for comparison. TECHNIQUE: Helical axial images of the head were obtained following uneventful intravenous administration of 118 cc of Optiray. Sagittal and coronal reconstructions were viewed as well as maximal intensity projections on an independent 3-D workstation. Automated exposure control was utilized for the study. A dose lowering technique was utilized adhering to the principles of ALARA. FINDINGS: Mild ventricular dilatation is likely due to atrophy. Basal cisterns are patent. There are no extra axial collections. No acute intracranial hemorrhage is identified. The bilateral M1, M2, A1 and A2 segments are patent. 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 This either a rises from the proximal aspect of a sylvian branch of the left MCA or the left MCA bifurcation. No additional intracranial aneurysms are identified. Posterior circulation is intact. There is no central vessel occlusion. There is mild plaque within the left cavernous carotid. IMPRESSION: 1. No central vessel occlusion. 2. 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 This aneurysm either arises from the proximal aspect of a sylvian branch of the left MCA or the left MCA bifurcation. No additional intracranial aneurysms. ACT 112: Negative or not required by law. Electronically signed by: Aivla Cantu M.D. 01/02/2022 9:14 PM Neck CTA 01/02/22 19:31 CT ANGIOGRAPHY OF THE NECK WITH CONTRAST CLINICAL HISTORY: dizziness COMPARISON STUDY: No previous studies for comparison. Technique: CT angiography of the carotid and vertebral arteries was obtained using Optiray and 3D reconstruction on an independent workstation. NASCET criteria was utilized. Automated exposure control was utilized for the study. A dose lowering technique was utilized adhering to the principles of ALARA. Findings: Visualized portions of the lung apices are unremarkable. There is a nodule within the lower pole of the left thyroid lobe, measuring approximately 2.1 cm. There is no cervical lymphadenopathy. No acute cervical spine fracture is present. The bilateral common carotid, cervical internal carotid and vertebral arteries are patent. There is no dissection within these vessels. There is mild plaque within the proximal bilateral internal carotid arteries without significant stenosis. CTA of the head will be reported separately. There is no aneurysm within the neck IMPRESSION: Mild atherosclerotic plaque within the proximal bilateral internal carotid arteries. No stenosis or dissection within the bilateral common carotid, cervical internal carotid or vertebral arteries. ACT 112: Negative or not required by law. Electronically signed by: Avila Cantu M.D. 01/02/2022 9:08 PM ECG Data Attestation: I personally reviewed and interpreted this ECG as follows: Indication: + chest pain Rate (beats per minute): 104 Rhythm: + sinus tachycardia ECG Intervals/blocks: + Normal QRS and + Normal QT ECG [place]: + Normal ECG ST segments: + Normal ST segments MDM Narrative An order was placed for continuous cardiac monitoring. The monitor shows a rate of _78_ with _normal sinus_ rhythm. Patient has no contributory family history. Patient was first seen and observation began at 1916 and was necessary in order to evaluate etiology of s ymptoms and rule out ACS. Upon re-evaluation, 7 hours of observation revealed that the patient should be admitted. Discharge time at 0220. This is a 71-year-old female who presents with abrupt onset of dizziness and nausea. Patient does have a history of hypertension, no prior history of vertigo. Labs are drawn and sent, patient sent for CT imaging. Patient's labs and imaging reassuring. Patient did feel improved here without significant intervention. She stated she did still feel "fuzzy" however did not have any overt spinning again. She was given meclizine for this. In age and history, we did discuss options for disposition. Patient initially concerned about going home as she lives alone however she was ambulatory here, and is reassured that with likely a peripheral vertigo, she would be given medication to take at home. Patient then wanted to be discharged as she was concerned for COVID exposure the longer she was in the hospital. While she was attempting to arrange a ride, the second troponin have been drawn and sent. Unfortunately the second troponin resulted elevated after the first 1 had been negative. Patient had no evolving chest pain, shortness of breath, or EKG changes. Given advanced age and comorbidities, we discussed importance of additional inpatient evaluation and management. Patient eventually in agreement with this plan and hospitalist consulted for additional evaluation. No ectopy or dysrhythmia noted. Patient denied any recurrent vertiginous symptoms or nausea. Impression & Plan Dizziness, HTN (hypertension), Dehydration, Elevated troponin Discharge Plan Visit Data Chief Complaint: Dizziness Stated Complaint: dizziness ED Provider: Sil Angulo Discharge Problem: Dizziness, HTN (hypertension), Dehydration, Elevated troponin Patient Disposition: Home - Self-Care Condition: Good Discharge Instructions Interventions: ED Discharge Assessment Last Done: 01/03/22 13:05
[2022-01-02 19:54] LABS: Basophils # (auto) 0.07 K/uL (0-0.2); Basophils % (auto) 1.2 %; Eosinophils # (auto) 0.08 K/uL (0-0.50); Eosinophils % (auto) 1.3 %; Hematocrit (blood only) 38.4 % (34.1-44.9); Hemoglobin 13.1 g/dl (12.0-16.0); Immature Granulocytes # (auto) 0.01 K/uL (0.00-0.02); Immature Granulocytes % (auto) 0.2 %; Lymphocytes # (auto) 2.11 K/uL (1.2-3.4); Lymphocytes % (auto) 35.4 %; Mean Corpuscular Hemoglobin 31.9 pg (25.0-34.0); Mean Corpuscular Hgb Conc 34.1 g/dL (32.0-36.0); Mean Corpuscular Volume 93.4 fL (80.0-100.0); Mean Platelet Volume 9.4 fL (9.4-12.3); Monocytes % (auto) 11.7 %; Neutrophils # (auto) 2.99 K/uL (1.4-6.5); Neutrophils % (auto) 50.2 %; Platelet Count 309 K/uL (130-400); RDW Standard Deviation 41.3 fL (36.4-46.3); Red Blood Count 4.11 M/uL (3.93-5.22); White Blood Count 5.96 K/ul (4.8-10.8)
[2022-01-02 20:07] LABS: Albumin Globulin Ratio 1.9 (0.9-2); Albumin Level 4.7 gm/dl (3.4-5.0); BUN Creatinine Ratio 32.8 (10-20); Bilirubin,Total 0.4 mg/dl (0.2-1.0); Calcium 9.4 mg/dl (8.5-10.1); Creatinine Clr Calc Pharmacy 67.3 ml/min; Est GFR (African American) 101.1 ml/min; Est GFR (Non-African American) 87.2 ml/min; Globulin 2.5 gm/dl (2.5-4.0); Magnesium 1.9 mg/dl (1.7-2.4); Potassium 3.3 mmol/L (3.5-5.1); Total Protein 7.2 gm/dl (6.0-8.3)
[2022-01-02 20:11] LABS: Troponin I High Sensitivity 5.7 pg/ml (0-14)
[2022-01-02] MEDS: SODIUM CHLORIDE 0.9% 1000ML 1,000 ML IV SCH (20:17)
--- NOTE | 2022-01-02 20:22 | XRay Report ---
XR chest 1V portable CLINICAL HISTORY: nausea COMPARISON STUDY: Chest radiograph September 26, 2020 FINDINGS: Lung volumes are normal. Lungs are clear. There is no pneumothorax. Possible small right pl eural effusion. Cardiac size is normal. Mediastinal contours are normal. There is no evidence for pul monary edema. IMPRESSION: Possible small right pleural effusion. Pulmonary vascular congestion without overt pulmon maritza edema. ACT 112: Negative or not required by law. Electronically signed by: Avila Cantu M.D. 01/02/2022 8:20 PM
[2022-01-02 20:44] LABS: Appearance Urine Clear (Clear); Bacteria Urine Automated Negative (Negative); Bilirubin Urine Negative (Negative); Blood Urine Negative (Negative); Color Urine Yellow; Epithelial Cell Urine Auto >30 /lpf (0-5); Glucose Urine UA Negative (Negative); Ketones Urine Negative (Negative); Leukocyte Esterase Urine 3+ (Negative); Nitrite Urine Negative (Negative); Protein Urine Negative (Negative); RBC Urine Automated 0-4 /hpf (0-4); Specific Gravity Urine 1.014 (1.000-1.030); Urobilinogen Urine Negative (Negative); WBC Urine Automated >30 /hpf (0-5); pH Urine 5.5 (4.5-7.5)
[2022-01-02] MEDS ORDERED: OPTIRAY 300 500mL IV ONE (20:49)
--- NOTE | 2022-01-02 21:06 | CT Scan Report ---
CT OF THE HEAD WITHOUT CONTRAST CLINICAL HISTORY: dizziness COMPARISON STUDY: No previous studies for comparison. CT DOSE: 1146.38 mGy.cm TECHNIQUE: Helical axial images of the head were obtained without IV contrast. Automated exposure con trol was utilized for the study. A dose lowering technique was utilized adhering to the principles o f ALARA. FINDINGS: No acute intracranial hemorrhage, midline shift or mass effect is present. White matter hyp odensity suggests small vessel disease. Mild ventricular dilatation is likely due to atrophy. The bas al cisterns are patent. No extra-axial collections are present. There are no findings to suggest acut e dural sinus thrombosis or acute territorial infarct. No significant calvarial abnormalities are pre sent. Visualized portions of the sinuses and mastoid air cells are clear. IMPRESSION: No acute intracranial findings. ACT 112: Negative or not required by law. Electronically signed by: Avila Cantu M.D. 01/02/2022 9:04 PM
[2022-01-02 21:08] LABS: Lyme Ab IgG w/WB Rflx Negative (Negative)
[2022-01-02 21:10] LABS: Lyme Ab IgM w/WB Rflx Negative (Negative)
--- NOTE | 2022-01-02 21:10 | CT Scan Report ---
CT ANGIOGRAPHY OF THE NECK WITH CONTRAST CLINICAL HISTORY: dizziness COMPARISON STUDY: No previous studies for comparison. Technique: CT angiography of the carotid and vertebral arteries was obtained using Optiray and 3D rec onstruction on an independent workstation. NASCET criteria was utilized. Automated exposure control was utilized for the study. A dose lowering technique was utilized adhering to the principles of ALA RA. Findings: Visualized portions of the lung apices are unremarkable. There is a nodule within the lower pole of the left thyroid lobe, measuring approximately 2.1 cm. There is no cervical lymphadenopathy. No acute cervical spine fracture is present. The bilateral common carotid, cervical internal carotid and vertebral arteries are patent. There is no dissection within these vessels. There is mild plaque within the proximal bilateral internal carotid arteries without significant stenosis. CTA of the hea d will be reported separately. There is no aneurysm within the neck IMPRESSION: Mild atherosclerotic plaque within the proximal bilateral internal carotid arteries. No stenosis or d issection within the bilateral common carotid, cervical internal carotid or vertebral arteries. ACT 112: Negative or not required by law. Electronically signed by: Avila Cantu M.D. 01/02/2022 9:08 PM
--- NOTE | 2022-01-02 21:16 | CT Scan Report ---
CTA ANGIOGRAPHY OF THE HEAD CLINICAL HISTORY: dizziness COMPARISON STUDY: No previous studies for comparison. TECHNIQUE: Helical axial images of the head were obtained following uneventful intravenous administr ation of 118 cc of Optiray. Sagittal and coronal reconstructions were viewed as well as maximal inten sity projections on an independent 3-D workstation. Automated exposure control was utilized for the study. A dose lowering technique was utilized adhering to the principles of ALARA. FINDINGS: Mild ventricular dilatation is likely due to atrophy. Basal cisterns are patent. There are no extra axial collections. No acute intracranial hemorrhage is identified. The bilateral M1, M2, A1 and A2 segments are patent. 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 This eith er arises from the proximal aspect of a sylvian branch of the left MCA or the left MCA bifurcation. N o additional intracranial aneurysms are identified. Posterior circulation is intact. There is no cent ral vessel occlusion. There is mild plaque within the left cavernous carotid. IMPRESSION: 1. No central vessel occlusion. 2. 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 This aneurysm either arises from the proximal aspect of a sylvian branch of the left MCA or the left MCA bifurcation. No additional intracranial a neurysms. ACT 112: Negative or not required by law. Electronically signed by: Avila Cantu M.D. 01/02/2022 9:14 PM
[2022-01-02] MEDS ORDERED: MECLIZINE HCL 25 MG TAB PO STA (21:56)
[2022-01-03] MEDS ORDERED: MECLIZINE HCL 25MG HOME PACK PO ONE (00:29)
[2022-01-03] MEDS ORDERED: POTASSIUM CHLORIDE CRTAB 20 MEQ TABCR PO STA (01:02)
[2022-01-03] MEDS ORDERED: ONDANSETRON INJ 2 MG/ML 2 ML VIAL IV STA (02:41)
[2022-01-03] MEDS ORDERED: LABETALOL HCL IV 5 MG/ML 20ML IV STA (02:41)
--- NOTE | 2022-01-03 02:57 | History & Physical Report ---
Date of Service January 03, 2022 Assessment & Plan (1) Dizziness: Plan: 71yo female with a history of HTN, pulsatile tinnitus, eustachian tube dysfunction, sensorineural hearing loss, and anxiety presents with a one-day history of dizziness. Dizziness Differential is broad but low suspicion for structural abnormality based on relatively unremarkable imaging Mild ataxia noted by ED provider upon ambulation trial Symptoms improved with meclizine Continue NSS @ 125mL/hr Zofran prn nausea PT/OT ordered CM consulted for home safety assessment given patient's expressed concerns regarding residual symptoms and living alone Elevated troponin Initial value negative, but six-hour repeat in the ED was elevated to 38.2 Two-hour repeat (3rd level drawn) trivial increase (38.2 to 40.3); small en ough delta = further repeat values not indicated EKG: sinus tachycardia without overt ischemic change Patient is without chest pain now or recently HTN: continue home amlodipine Anxiety: continue home xanax FEN: regular diet Code status: full code DVT ppx: SCDs Held home meds: none PT/OT: ordered Case management: consulted for home safety assessment Dispo: med/telemetry (2) HTN (hypertension): (3) Anxiety: History of Present Illness Primary Care Provider: Pradeep Whitten MD 71yo female with a history of HTN, pulsatile tinnitus, eustachian tube dysfunction, sensorineural hearing loss, and anxiety presents with a one-day history of dizziness. Symptoms began when patient was walking her dog. Describes the sensation as the room spinning around her. Associated with mild nausea but no vomiting. Patient notes feeling a bit "fuzzy" for a few hours beforehand but denies other preceding symptoms. Denies LOC or falls. Patient reports a history of pulsatile tinnitus but denies recent changes in hearing. Patient denies fever, chills, headache, vision changes, CP, palpitations, SOB, edema, abdominal pain, vomiting, dysuria, hematochezia, melena, back pain, numbness, tingling, weakness, or other symptoms. Denies recent illness or recent med changes. Upon arrival, vitals were notable for elevated BP (150-180s/90-110s) and mild tachycardia (105); no tachypnea, patient afebrile, spO2 adequate on room air. Initial labs were notable for mild hypokalemia (3.3) and an elevated hsTroponin (initially 5.7 but increased on six-hour repeat to 38.2). No leukocytosis, no anemia, platelets wnl, no other electrolyte abnormalities, LFTs wnl, lipase not elevated, TSH wnl, UA not infected, lyme serology negative. In the ED, patient received meclizine 25mg PO (x1), zofran 4mg IV (x1), labetalol 5mg IV (x1), KCl 40mEq PO (x1), and was started on NSS @ 125mL/hr. CXR: possible small right pleural effusion; pulmonary vascular congestion without overt pulmonary edema CT head: no acute intracranial findings. 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 arising either from the proximal aspect of a sylvian branch of the left MCA or the left MCA bifurcation; no additional intracranial aneurysms CTA neck: mild atherosclerotic plaque within the proximal bilateral internal carotid arteries; no stenosis or dissection within the bilateral common carotid, cervical internal carotid or vertebral arteries Surrogate decision-maker in case of an emergency: atiya Harrell (cell: [phone]) Allergies Allergy/AdvReac Type Severity Reaction Status Date / Time Penicillins Allergy Verified 12/06/21 08:16 Home Medications Medication Instructions Recorded Confirmed Type multivitamin with minerals-folic 2 tab PO QAM 09/26/20 12/06/21 History acid 200 mcg chewable tablet (Multivitamin Gummies) calcium 600 mg-D3 800 unit-mag11 1 tab PO QAM 30 days #30 tabs 09/29/20 12/06/21 Rx 50 ip-txpn-kylfob-dennys-s.borat tablet (Caltrate 600-D Plus Minerals) acetaminophen 325 mg tablet 325 mg PO QID PRN 10/05/20 12/06/21 History alprazolam 0.25 mg tablet 0.25 mg PO .COMPLEX PRN anxiety 01/02/21 12/06/21 Rx #14 tabs cholecalciferol (vitamin D3) 50 50 mcg PO DAILY #90 caps 01/02/21 12/06/21 Rx mcg (2,000 unit) capsule amlodipine 5 mg tablet 5 mg PO QAM #30 tabs 11/06/21 12/06/21 Rx meclizine 25 mg tablet 25 mg PO TID PRN dizziness #30 tabs 01/03/22 Rx Past Med/Surg History Medical History Anxiety Anxiety Bilateral sensorineural hearing loss Bilateral tinnitus Bronchitis Conductive hearing loss of right ear with unrestricted hearing of left ear Fear of flying Fracture of hip, right, closed History of tachycardia Hypertension Nicotine dependence Osteoporosis Osteoporosis Poor appetite Pulsatile tinnitus, left ear Skin cancer Vitamin D deficiency Surgical History H/O exploratory laparotomy H/O shoulder surgery Family History Father Alzheimer disease Mother Dementia Osteoporosis Brother Suicide Sister Osteoporosis Ankylosing spondylitis Denies family history of Colon cancer Ovarian cancer Prostate cancer Myocardial infarction Breast cancer Social History Smoking Status: Former smoker Tobacco Type: Cigarettes Cigarettes Per Day: 10; Hx Alcohol Use: Yes Alcohol type: beer Hx Substance Use: No Preferred Language: Turkmen Communication Ability: Effective Visual Impairment: No Limitations Hearing Ability: Normal General Partner Required: No Beliefs That Will Affect Care: None marital status: Single Current Living Situation: Alone current occupational status: retired current occupation: homemaker Feels Safe at Home: Yes Dental Care, Regularly: Yes Physical Activity Frequency: Other Physical Activity Frequency Comment: Frequesnt exercise Seatbelt Use: always Sunscreen Use: No Assistive Devices: None Physical Exam Physical Exam: Constitutional: well-appearing, no acute distress HEENT: NCAT, no conjunctival injection, no nystagmus CV: regular rhythm, no murmur appreciated, extremities well-perfused, no LE edema Resp: CTABL, no wheezes/rales/rhonchi appreciated, no increased work of breathing GI: soft, nondistended, nontender, BS normoactive MSK: no gross deformities appreciated Skin: warm, dry, no rash appreciated Neuro: alert, oriented, CN2-12 grossly intact, coordination intact, no focal neurologic deficit appreciated Results & Data Results & Data ([facility]) Vital Signs (Past 12 Hours) Vital Signs Temp Pulse Pulse Resp BP BP Pulse Ox 01/03/22 02:00 81 20 150/91 H 97 01/03/22 00:00 83 20 178/107 H 98 01/02/22 22:38 98 H 18 178/107 H 99 01/02/22 21:10 56 L 20 182/93 H 98 01/02/22 19:15 96 01/02/22 19:05 37.1 C 105 H 18 167/118 H 97 O2 Del Method 01/03/22 02:00 Room Air 01/03/22 00:00 Room Air 01/02/22 22:38 Room Air 01/02/22 21:10 Room Air 01/02/22 19:15 Room Air 01/02/22 19:05 Room Air Supervising Physician Co-Signing Physician Notes Attending addendum: I have physically seen this patient, have supervised the medical residents activities, and agree with the H&P unless as otherwise noted. Assessment and Plan: Elevated troponin/hypertension- Initial troponin 38.2, with subsequent increase to 40.3 The patient will be admitted to telemetry for serial cardiac enzymes, serial EKG's, cardiac rhythm monitoring and a 2-D echocardiogram with Dopplers. EKG with sinus tachycardia, no acute ST-T changes Continue amlodipine Unlikely cause of patient's dizziness, most likely type II Dizziness- Follow cardiac work-up as above Rehydration with NSS at 125 mils per hour x1 L Zofran 4 mg IV every 6 hours as needed PT/OT consults due to mild ataxia upon ambulation trial Anxiety- Continue Xanax as needed Remaining orders and notations as noted Resident Activity Tracking Resident Involvement: Resident Care Provided and [employer]ic Coverage Note Care Provided: Adult Hospital Medicine
[2022-01-03] MEDS ORDERED: ONDANSETRON INJ 2 MG/ML 2 ML VIAL IV PRN (03:24)
[2022-01-03] MEDS ORDERED: ALPRAZolam 0.5 MG TABLET PO STA (03:24)
[2022-01-03] MEDS: SODIUM CHLORIDE 0.9% 1000ML 1,000 ML IV SCH ×2 (03:57→12:06)
[2022-01-03] MEDS ORDERED: MELATONIN 3 MG TAB PO PRN (05:34)
[2022-01-03] MEDS ORDERED: amLODIPine BESYLATE 5 MG TAB PO SCH (09:00)
[2022-01-03] MEDS: PNEUMOCOCCAL Polysaccharide Vaccine 25mcg/0.5mL vial/Syr IM ONE ×2 (12:48→13:05)
--- NOTE | 2022-01-03 12:54 | Discharge Summary ---
Date of Service January 03, 2022 Admission HPI Per Admitting Provider 71yo female with a history of HTN, pulsatile tinnitus, eustachian tube dysfunction, sensorineural hearing loss, and anxiety presents with a one-day history of dizziness. Symptoms began when patient was walking her dog. Describes the sensation as the room spinning around her. Associated with mild nausea but no vomiting. Patient notes feeling a bit "fuzzy" for a few hours beforehand but denies other preceding symptoms. Denies LOC or falls. Patient reports a history of pulsatile tinnitus but denies recent changes in hearing. Patient denies fever, chills, headache, vision changes, CP, palpitations, SOB, edema, abdominal pain, vomiting, dysuria, hematochezia, melena, back pain, numbness, tingling, weakness, or other symptoms. Denies recent illness or recent med changes. Upon arrival, vitals were notable for elevated BP (150-180s/90-110s) and mild tachycardia (105); no tachypnea, patient afebrile, spO2 adequate on room air. Initial labs were notable for mild hypokalemia (3.3) and an elevated hsTroponin (initially 5.7 but increased on six-hour repeat to 38.2). No leukocytosis, no anemia, platelets wnl, no other electrolyte abnormalities, LFTs wnl, lipase not elevated, TSH wnl, UA not infected, lyme serology negative. In the ED, patient received meclizine 25mg PO (x1), zofran 4mg IV (x1), labetalol 5mg IV (x1), KCl 40mEq PO (x1), and was started on NSS @ 125mL/hr. CXR: possible small right pleural effusion; pulmonary vascular congestion without overt pulmonary edema CT head: no acute intracranial findings. 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 arising either from the proximal aspect of a sylvian branch of the left MCA or the left MCA bifurcation; no additional intracranial aneurysms CTA neck: mild atherosclerotic plaque within the proximal bilateral internal carotid arteries; no stenosis or dissection within the bilateral common carotid, cervical internal carotid or vertebral arteries Surrogate decision-maker in case of an emergency: daughter Rola Harrell (cell: [phone]) Principal Diagnosis vertigo Discharge Exam Constitutional: well-appearing, no acute distress HEENT: NCAT, no conjunctival injection, no nystagmus CV: RRR, no murmur, extremities well-perfused, no LE edema Resp: CTAB, no wheezes/rales/rhonchi, no increased work of breathing GI: soft, nondistended, nontender, +BS MSK: no gross deformities appreciated Skin: warm, dry, no rash appreciated Neuro: alert, oriented, CN2-12 grossly intact, coordination intact, no focal neurologic deficit appreciated Discharge Data Allergies Allergy/AdvReac Type Severity Reaction Status Date / Time Penicillins Allergy Verified 12/06/21 08:16 Consultations 01/03/22 02:42 ED Decision to Admit Stat Ordered Studies Laboratory Results WBC 5.96 K/ul (4.8-10.8) 01/02/22 19:11 RBC 4.11 M/uL (3.93-5.22) 01/02/22 19:11 Hgb 13.1 g/dl (12.0-16.0) 01/02/22 19:11 Hct 38.4 % (34.1-44.9) 01/02/22 19:11 MCV 93.4 fL (80.0-100.0) 01/02/22 19:11 MCH 31.9 pg (25.0-34.0) 01/02/22 19:11 MCHC 34.1 g/dL (32.0-36.0) 01/02/22 19:11 RDW Std Deviation 41.3 fL (36.4-46.3) 01/02/22 19:11 RDW Coeff of Maria De Jesus 12.0 % (11.5-14.5) 01/02/22 19:11 Plt Count 309 K/uL (130-400) 01/02/22 19:11 MPV 9.4 fL (9.4-12.3) 01/02/22 19:11 Immature Gran % (Auto) 0.2 % 01/02/22 19:11 Neut % (Auto) 50.2 % 01/02/22 19:11 Lymph % (Auto) 35.4 % 01/02/22 19:11 Ocean % (Auto) 11.7 % 01/02/22 19:11 Eos % (Auto) 1.3 % 01/02/22 19:11 Baso % (Auto) 1.2 % 01/02/22 19:11 Neut # (Auto) 2.99 K/uL (1.4-6.5) 01/02/22 19:11 Lymph # (Auto) 2.11 K/uL (1.2-3.4) 01/02/22 19:11 Ocean # (Auto) 0.70 K/uL (0.24-0.82) 01/02/22 19:11 Eos # (Auto) 0.08 K/uL (0-0.50) 01/02/22 19:11 Baso # (Auto) 0.07 K/uL (0-0.2) 01/02/22 19:11 Immature Gran # (Auto) 0.01 K/uL (0.00-0.02) 01/02/22 19:11 Sodium 136 mmol/L (136-145) 01/02/22 19:11 Potassium 3.3 mmol/L (3.5-5.1) L 01/02/22 19:11 Chloride 103 mmol/L (98-107) 01/02/22 19:11 Carbon Dioxide 19 mmol/L (21-32) L 01/02/22 19:11 Anion Gap 14 (3-11) H 01/02/22 19:11 BUN 22 mg/dl (6-23) 01/02/22 19:11 Creatinine 0.67 mg/dl (0.6-1.2) 01/02/22 19:11 Est Cr Clr Drug Dosing 67.3 ml/min 01/02/22 19:11 Est GFR ( Amer) 101.1 ml/min 01/02/22 19:11 Est GFR (Non-Af Amer) 87.2 ml/min 01/02/22 19:11 BUN/Creatinine Ratio 32.8 (10-20) H 01/02/22 19:11 Glucose 121 mg/dl (70-99(Fasting)) H 01/02/22 19:11 Calcium 9.4 mg/dl (8.5-10.1) 01/02/22 19:11 Magnesium 1.9 mg/dl (1.7-2.4) 01/02/22 19:11 Total Bilirubin 0.4 mg/dl (0.2-1.0) 01/02/22 19:11 AST 17 U/L (13-39) 01/02/22 19:11 ALT 13 U/L (7-52) 01/02/22 19:11 Alkaline Phosphatase 88 U/L (34-104) 01/02/22 19:11 Troponin I High Sens 40.3 pg/ml (0-14) H 01/03/22 02:58 Total Protein 7.2 gm/dl (6.0-8.3) 01/02/22 19:11 Albumin 4.7 gm/dl (3.4-5.0) 01/02/22 19:11 Globulin 2.5 gm/dl (2.5-4.0) 01/02/22 19:11 Albumin/Globulin Ratio 1.9 (0.9-2) 01/02/22 19:11 Lipase 12 U/L (11-82) 01/02/22 19:11 TSH 2.287 uIu/ml (0.300-4.500) 01/02/22 19:11 Urine Color Yellow 01/02/22 20:15 Urine Appearance Clear (Clear) 01/02/22 20:15 Urine pH 5.5 (4.5-7.5) 01/02/22 20:15 Ur Specific Eleanor 1.014 (1.000-1.030) 01/02/22 20:15 Urine Protein Negative (Negative) 01/02/22 20:15 Urine Glucose (UA) Negative (Negative) 01/02/22 20:15 Urine Ketones Negative (Negative) 01/02/22 20:15 Urine Blood Negative (Negative) 01/02/22 20:15 Urine Nitrite Negative (Negative) 01/02/22 20:15 Urine Bilirubin Negative (Negative) 01/02/22 20:15 Urine Urobilinogen Negative (Negative) 01/02/22 20:15 Ur Leukocyte Esterase 3+ (Negative) H 01/02/22 20:15 Urine WBC (Auto) >30 /hpf (0-5) H 01/02/22 20:15 Urine RBC (Auto) 0-4 /hpf (0-4) 01/02/22 20:15 U Hyaline Cast (Auto) 1-5 /lpf (0-5) 01/02/22 20:15 U Epithel Cells (Auto) >30 /lpf (0-5) H 01/02/22 20:15 Urine Bacteria (Auto) Negative (Negative) 01/02/22 20:15 Lyme Disease IgG Ab Negative (Negative) 01/02/22 19:11 Lyme Disease IgM Ab Negative (Negative) 01/02/22 19:11 SARS-CoV-2, RNA, NAAT NEGATIVE (NEGATIVE) 01/03/22 02:[address] 01/02/22 00:00 CT OF THE HEAD WITHOUT CONTRAST CLINICAL HISTORY: dizziness COMPARISON STUDY: No previous studies for comparison. CT DOSE: 1146.38 mGy.cm TECHNIQUE: Helical axial images of the head were obtained without IV contrast. Automated exposure control was utilized for the study. A dose lowering technique was utilized adhering to the principles of ALARA. FINDINGS: No acute intracranial hemorrhage, midline shift or mass effect is present. White matter hypodensity suggests small vessel disease. Mild ventricular dilatation is likely due to atrophy. The basal cisterns are patent. No extra-axial collections are present. There are no findings to suggest acute dural sinus thrombosis or acute territorial infarct. No significant calvarial abnormalities are present. Visualized portions of the sinuses and mastoid air cells are clear. IMPRESSION: No acute intracranial findings. ACT 112: Negative or not required by law. Electronically signed by: Avila Cantu M.D. 01/02/2022 9:04 PM Chest X-Ray 01/02/22 19:31 XR chest 1V portable CLINICAL HISTORY: nausea COMPARISON STUDY: Chest radiograph September 26, 2020 FINDINGS: Lung volumes are normal. Lungs are clear. There is no pneumothorax. Possible small right pleural effusion. Cardiac size is normal. Mediastinal contours are normal. There is no evidence for pulmonary edema. IMPRESSION: Possible small right pleural effusion. Pulmonary vascular congestion without overt pulmonary edema. ACT 112: Negative or not required by law. Electronically signed by: Avila Cantu M.D. 01/02/2022 8:20 PM Head CTA 01/02/22 19:31 CTA ANGIOGRAPHY OF THE HEAD CLINICAL HISTORY: dizziness COMPARISON STUDY: No previous studies for comparison. TECHNIQUE: Helical axial images of the head were obtained following uneventful intravenous administration of 118 cc of Optiray. Sagittal and coronal reconstructions were viewed as well as maximal intensity projections on an independent 3-D workstation. Automated exposure control was utilized for the study. A dose lowering technique was utilized adhering to the principles of ALARA. FINDINGS: Mild ventricular dilatation is likely due to atrophy. Basal cisterns are patent. There are no extra axial collections. No acute intracranial hemorrhage is identified. The bilateral M1, M2, A1 and A2 segments are patent. 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 This either arises from the proximal aspect of a sylvian branch of the left MCA or the left MCA bifurcation. No additional intracranial aneurysms are identified. Posterior circulation is intact. There is no central vessel occlusion. There is mild plaque within the left cavernous carotid. IMPRESSION: 1. No central vessel occlusion. 2. 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 This aneurysm either arises from the proximal aspect of a sylvian branch of the left MCA or the left MCA bifurcation. No additional intracranial aneurysms. ACT 112: Negative or not required by law. Electronically signed by: Avila Cantu M.D. 01/02/2022 9:14 PM Neck CTA 01/02/22 19:31 CT ANGIOGRAPHY OF THE NECK WITH CONTRAST CLINICAL HISTORY: dizziness COMPARISON STUDY: No previous studies for comparison. Technique: CT angiography of the carotid and vertebral arteries was obtained using Optiray and 3D reconstruction on an independent workstation. NASCET criteria was utilized. Automated exposure control was utilized for the study. A dose lowering technique was utilized adhering to the principles of ALARA. Findings: Visualized portions of the lung apices are unremarkable. There is a nodule within the lower pole of the left thyroid lobe, measuring approximately 2.1 cm. There is no cervical lymphadenopathy. No acute cervical spine fracture is present. The bilateral common carotid, cervical internal carotid and vertebral arteries are patent. There is no dissection within these vessels. There is mild plaque within the proximal bilateral internal carotid arteries without significant stenosis. CTA of the head will be reported separately. There is no aneurysm within the neck IMPRESSION: Mild atherosclerotic plaque within the proximal bilateral internal carotid arteries. No stenosis or dissection within the bilateral common carotid, cervical internal carotid or vertebral arteries. ACT 112: Negative or not required by law. Electronically signed by: Avila Cantu M.D. 01/02/2022 9:08 PM Hospital Course (1) Dizziness: 71yo female with a history of HTN, pulsatile tinnitus, eustachian tube dysfunction, sensorineural hearing loss, and anxiety presents with a one-day history of dizziness. Vertigo Dizziness single episode of room spinning without syncope, presentation appears to be vertigo. Possible component of dehydration as well. Mild ataxia noted by ED provider upon ambulation trial Head/Neck CTA, head CT, chest XR findings as above. Findings do not explain dizziness. Symptoms improved with meclizine, IV fluids, Zofran prn nausea PT/OT will discharge with meclizine to be taken as needed for acute episodes. She should f/u with her PCP for further guidance. Bilateral atherosclerotic plaques - incidental finding on neck CTA - recommend outpatient f/u, consider statin for plaque control Elevated troponin, peaked Initial value negative, 6 repeat in the ED was elevated to 38.2 Two-hour repeat (3rd level drawn) trivial increase (38.2 to 40.3); small enough delta = further repeat values not indicated EKG: sinus tachycardia without overt ischemic change Patient is without chest pain now or recently. Low concern for ACS at this time. HTN: continue home amlodipine Anxiety: continue home xanax (2) HTN (hypertension): (3) Anxiety: Total Time Total Time Spent Total Time Spent (In Minutes): 30 Discharge Plan Discharge Items Patient Disposition: Home - Self-Care Reason For Visit: DIZZINESS, ELEVATED TROPONIN Discharge Diagnosis: vertigo Condition on Discharge: Good Activity: Per Instructions section Non-emergency contact: Primary Care Provider Call non-emergency contact if: you have any medication questions and your symptoms worsen Follow-up/Referrals: Pradeep Whitten MD [Primary Care Provider] - Diet: Regular Addtl Attending Provider Instructions: You came into the hospital for an episode of dizziness. In the emergency room you were treated with a dose of meclizine and IV fluids which seem to help with your symptoms. We performed imaging of your head and neck which showed some mild atherosclerotic plaques in your carotid arteries and a small aneurysm, however, these findings were incidental in nature and do not appear to be the reason for your dizziness. Nonconcerning at this time, but you may speak with your primary care provider if you have further questions. Your heart showed no abnormalities. We believe your dizziness was due to an episode of vertigo which has now resolved. We have prescribed you some meclizine to be taken as needed if you have these episodes of dizziness. I do recommend you follow-up with your primary care provider for further guidance on vertigo. They may be able to refer you to physical therapy for manual maneuvers to aid with your symptoms. Pending Studies at Discharge: No Stand-Alone Forms: My [facility] Medications and DC Order Prescriptions: New meclizine 25 mg tablet 25 mg PO TID PRN (Reason: dizziness) Qty: 30 0RF Continued acetaminophen 325 mg tablet 325 mg PO QID PRN amlodipine 5 mg tablet 5 mg PO QAM Qty: 30 5RF alprazolam 0.25 mg tablet 0.25 mg PO .COMPLEX PRN (Reason: anxiety) Qty: 14 0RF Rx Instructions: 0.25 mg PO ONLY WHEN FLYING PRN; ONLY USED IF SHE FLYING cholecalciferol (vitamin D3) 50 mcg (2,000 unit) capsule 50 mcg PO DAILY Qty: 90 3RF Rx Instructions: with heaviest meal of the day Multivitamin Gummies 200 mcg Tablet,Chewable 2 tab PO QAM Caltrate 600-D Plus Minerals 600 mg calcium- 800 unit-50 mg Tablet 1 tab PO QAM 30 Days Qty: 30 5RF Discharge Orders: Discharge Order (Routine); Ordered 01/03/22 Ordered By: Milton Kent Admission Data Admit Date/Time: 01/03/22 03:24 Attending Provider: Craig Fitch Admit Provider: Eloy Gillespie Primary Care Provider: Pradeep Whitten V. Other Providers: Tarun Easley Other Interventions: Discharge Summary Assessment (RN) Last Done: 01/03/22 13:09 Supervising Physician Co-Signing Physician Notes Patient seen and examined, chart reviewed, case discussed with Milton Kent and I agree with the assessment and plan as above except as otherwise noted Labs and images reviewed 71-year-old female who presented with a episode of room spinning without lightheadedness/dizziness/presyncope consistent with vertigo. Elevated creatinine/BUN ratio, but patient without orthostatic hypotension. History had severe dizziness when walking her dog, and this completely resolved after receiving meclizine. She is nervous about recurrent episodes. Discussed BPPV versus labyrinthitis, given prescription for meclizine as needed. If recurrent episodes and reassess for BPPV and referred to physical therapy for Latoya. Discussed red flag precautions including additional symptoms such as weakness, neurologic findings, vision change, chest pain, shortness of breath, or syncope/presyncope. Patient agreeable to return should these occur. No chest pain, mildly elevated troponin consistent with low level demand. At time of discharge heart rate is regular, lungs are clear, patient is normotensive. No distress. No dizziness. EOM intact, vision and hearing grossly intact. Resident Activity Tracking Resident Involvement: Resident Care Provided Care Provided: Adult [facility]
--- NOTE | 2022-01-03 17:44 | Electrocardiogram Report ---
Test Reason : Blood Pressure : / mmHG Vent. Rate : 104 BPM Atrial Rate : 104 BPM P-R Int : 170 ms QRS Dur : 080 ms QT Int : 356 ms P-R-T Axes : 070 002 066 degrees QTc Int : 468 ms Sinus tachycardia with Premature atrial complexes Otherwise normal ECG When compared with ECG of 26-SEP-2020 12:07, Premature atrial complexes are now Present Confirmed by Josué Wahl ([id number]) on 01/03/2022 5:43:59 PM Referred By: REFERRED SELF Confirmed By:Manish Wahl
--- NOTE | 2022-01-03 22:12 | Billing Data ---
Date of Service January 03, 2022 Coding Level of Care Code INT OBSERVATION CARE 68M LVL 3
== END 2022-01-03 13:40 | disposition home or self-care (01) ==
LOC: ED 19:02 → EDINP 01-03 03:24 → INTOOBSV 01-03 03:24 → SUATTDRO 01-03 03:24 → EDINP 01-03 13:05